=== PATIENT | female | born 1930 | race Hispanic/Latino ===

== ENCOUNTER 2017-06-10 00:31 | Inpatient (IN) | payer OTHER ==
[2017-06-10 01:07] VITALS: BMI 22.9
[2017-06-10] MEDS ORDERED: Sodium Chloride 0.9% 500 ML IV ONE (01:46)
[2017-06-10 02:00] LABS: BASO % 0.6 % (0.0-2.0); EOS # 0.1 K/uL (0.0-0.7); EOS % 1.5 % (0.0-4.0); LYMPH # 3.1 K/uL (1.0-4.3); LYMPH % 42.5 % (20.0-40.0); MEAN CELL VOLUME 84.2 fl (81.0-99.0); MEAN CORPUSCULAR HEMOGLOBIN 27.1 pg (27.0-31.0); MEAN CORPUSCULAR HGB CONC 32.2 g/dL (33.0-37.0); MEAN PLATELET VOLUME 8.1 fl (7.2-11.7); MONO # 0.8 K/uL (0.0-0.8); MONO % 10.5 % (0.0-10.0); NEUT # 3.3 K/uL (1.8-7.0); NEUT % 44.9 % (50.0-75.0); RBC 4.79 Mil/uL (3.80-5.20); RED CELL DISTRIBUTION WIDTH 16.2 % (11.5-14.5); WHITE BLOOD COUNT 7.3 K/uL (4.8-10.8)
--- NOTE | 2017-06-10 02:58 | ED PDOC ---
HPI: Chest Pain Time Seen by Provider: 06/10/17 01:04 Chief Complaint (Nursing): Chest Pain Chief Complaint (Provider): Chest pain and palpitations History Per: Patient History/Exam Limitations: no limitations Onset/Duration Of Symptoms: Hrs Current Symptoms Are (Timing): Still Present Severity: Moderate Quality: "Pain" Additional Complaint(s): 87 y/o female who complains of chest pain that began 20 minutes [employer] that is left sided and associated with left arm and jaw pain, as well as palpitations. Pain presented after eating and then stood to get to the car. Pain presented suddenly. She also complains of dizziness but denies numbness, weakness, syncope , or other complaint. Denies ever having this pain in the past but has mild pain when exerting that resolved. Past Medical History Vital Signs: Last Vital Signs Temp 97.8 F 06/10/17 20:04 Pulse 58 L 06/10/17 20:04 Resp 18 06/10/17 20:04 BP 133/70 06/10/17 20:04 Pulse Ox 98 06/10/17 20:04 - Medical History PMH: CAD, HTN, Hypercholesterolemia, Hyperlipidemia - Surgical History Surgical History: Cholecystectomy - Family History Family History: States: Unknown Family Hx - Social History Current smoker - smoking cessation education provided: No Alcohol: None Drugs: Denies - Home Medications Home Medications: Ambulatory Orders Medication Instructions Recorded Aspirin [Adult Low Dose Aspirin EC] 81 mg PO DAILY 06/10/17 Levothyroxine [Synthroid] 1 tab PO DAILY 06/10/17 Metformin HCl [Glucophage] 1,000 mg PO BID 06/10/17 Metoprolol Tartrate [Lopressor] 50 mg PO BID 06/10/17 - Allergies Allergies/Adverse Reactions: Allergies Allergy/AdvReac Type Severity Reaction Status Date / Time Sulfa (Sulfonamide Allergy RASH Verified 06/10/17 01:07 Antibiotics) JAZIEL Risk Score for UA/NSTEMI - JAZIEL Risk Score Age > 64: YES 3 or more CAD Risk Factors: YES Known CAD (Stenosis greater than 50%): NO Aspirin use in past 7 days: YES Severe Angina: NO EKG ST changes greater than 0.5mm: NO Positive Cardiac Marker: NO JAZIEL Score: 3 Risk %: 13% Wells Criteria for PE - Wells Criteria for Pulmonary Embolism Clinical Signs and Symptoms of DVT: No P.E is #1 Diagnosis, or Equally Likely: No Heart Rate >100: No Immobilization at least 3 days;Surgery previous 4 weeks: No Previous, objectively diagnosed PE or DVT: No Hemoptysis: No Malignancy w/treatment within 6 months, or palliative: No Total Score: 0 Review of Systems ROS Statement: Except As Marked, All Systems Reviewed And Found Negative Cardiovascular: Positive for: Chest Pain, Palpitations Musculoskeletal: Positive for: Shoulder Pain Neurological: Positive for: Dizziness Physical Exam - Reviewed Nursing Documentation Reviewed: Yes Vital Signs Reviewed: Yes - Physical Exam Appears: Positive for: Non-toxic, No Acute Distress Head Exam: Positive for: ATRAUMATIC, NORMAL INSPECTION, NORMOCEPHALIC Skin: Positive for: Normal Color, Warm, Dry Eye Exam: Positive for: EOMI, Normal appearance, PERRL ENT: Positive for: Normal ENT Inspection Neck: Positive for: Normal, Painless ROM Cardiovascular/Chest: Positive for: Tachycardia, Irregularly Irregular. Negative for: Regular Rate, Rhythm (irregularly irregular) Respiratory: Positive for: Normal Breath Sounds. Negative for: Accessory Muscle Use, Wheezing, Respiratory Distress Gastrointestinal/Abdominal: Positive for: Normal Exam, Soft. Negative for: Tenderness Back: Positive for: Normal Inspection Extremity: Positive for: Normal ROM Neurologic/Psych: Positive for: Alert, Oriented - Laboratory Results Result Diagrams: 06/10/17 01:57 06/10/17 01:57 - ECG ECG: Positive for: Interpreted By Me ECG Rhythm: Positive for: Normal QRS, Atrial Fibrillation (with RVR, rate 144), Nonspecific Changes. Negative for: Normal ST Segment O2 Sat by Pulse Oximetry: 96 (RA) Pulse Ox Interpretation: Normal - Critical Care Total Time (In Min): 60 Medical Decision Making Medical Decision Makin-30 Impression: Chest pain with Palpitations DDx: ACS, arrhythmia Plan: - EKG - Labs - CXR - IVF -ASA cardizem IV -lovenox SC hold on nitro due to borderline SBP and concurrent cardizem infusion EKG reviewed and shows new onset Afib with RVR. According to ACLS guidelines for SVT patient will be given Cardizem loading dose and infusion. 0130 Repeat EKG, after Cardizem, is improved and shows rate controlled afib. No ST changes, normal QRS, rate 77. Patient reports that her chest pain is resolved and is feeling better. Labs pending. Patient will be admitted to telemetry for afib and chest pain. EKG no ischemic changes. Chest pain resolved. tropx1 negative. Afib RVR management include cardizem for rate control and lovenox Chest pain/ACS: aspirin, lovenox, and cardiology consult. 06:32: Informed Dr. Lam of the patient's admission. Scribe Attestation Documented by Sweetie Gamboa acting as a scribe for Lia Collins MD. Scribe Attestation All medical record entries made by the Scribe were at my direction and personally dictated by me. I have reviewed the chart and agree that the record accurately reflects my personal performance of the history, physical exam, medical decision making, and the department course for this patient. I have also personally directed, reviewed, and agree with the discharge instructions and disposition. Disposition - Clinical Impression Clinical Impression: Atrial fibrillation with RVR, Acute chest pain, ACS (acute coronary syndrome) - Patient ED Disposition Is Patient to be Admitted: Yes Discussed With : Ervin Lam Doctor Will See Patient In The: Hospital Counseled Patient/Family Regarding: Studies Performed, Diagnosis - Disposition Disposition Time: 03:00 Condition: FAIR - Pt Status Changed To: Hospital Disposition Of: Inpatient - Admit Certification Admit to Inpatient:: After my assessment, the patient will require hospitalization for at least two midnights. This is because of the severity of symptoms shown, intensity of services needed, and/or the medical risk in this patient being treated as an outpatient. - POA Present On Arrival: None Core Measure Indicators: Chest Pain
[2017-06-10 03:07] LABS: INR 1.1 (0.9-1.2); PROTHROMBIN TIME 11.9 Seconds (9.8-13.1)
[2017-06-10 03:08] LABS: PARTIAL THROMBOPLASTIN TIME 30.7 Seconds (25.6-37.1)
[2017-06-10 03:13] LABS: BLOOD UREA NITROGEN 22 mg/dl (7-17); CALCIUM 9.8 mg/dL (8.4-10.2); GFR AFRICAN-AMERICAN > 60; GFR NON-AFRICAN AMERICAN > 60
[2017-06-10 03:22] LABS: B-TYPE NATRIURETIC PEPTIDE 222 pg/ml (0-900)
[2017-06-10] MEDS ORDERED: Enoxaparin 60 mg Syringe SC STA (04:13)
--- NOTE | 2017-06-10 09:06 | RAD ---
HISTORY: chest pain COMPARISON: No prior. FINDINGS: LUNGS: No active pulmonary disease. PLEURA: No significant pleural effusion identified, no pneumothorax apparent. CARDIOVASCULAR: Atherosclerotic aortic calcifications. Cardiomediastinal silhouette enlarged. OSSEOUS STRUCTURES: Degenerative changes. VISUALIZED UPPER ABDOMEN: Normal. OTHER FINDINGS: None. IMPRESSION: No active disease.
--- NOTE | 2017-06-10 12:17 | CP.PCM.HP ---
Past Patient History - Past Social History Smoking Status: Never Smoked - CARDIAC Hx Cardiac Disorders: Yes Hx Hypercholesterolemia: Yes Hx Hypertension: Yes - PULMONARY Hx Respiratory Disorders: No - NEUROLOGICAL Hx Neurological Disorder: No - ENDOCRINE/METABOLIC Hx Endocrine Disorders: Yes Hx Diabetes Mellitus Type 2: Yes Hx Hypothyroidism: Yes - HEMATOLOGICAL/ONCOLOGICAL Hx Blood Disorders: No - MUSCULOSKELETAL/RHEUMATOLOGICAL Hx Musculoskeletal Disorders: No Hx Falls: No - GASTROINTESTINAL Hx Gastrointestinal Disorders: No - PSYCHIATRIC Hx Psychophysiologic Disorder: No Hx Substance Use: No - SURGICAL HISTORY Hx Surgeries: Yes Hx Cholecystectomy: Yes - ANESTHESIA Hx Anesthesia: Yes Hx Anesthesia Reactions: No Hx Malignant Hyperthermia: No Meds Allergies/Adverse Reactions: Allergies Allergy/AdvReac Type Severity Reaction Status Date / Time Sulfa (Sulfonamide Allergy RASH Verified 06/10/17 01:07 Antibiotics) Results - Vital Signs Recent Vital Signs: Last Vital Signs Temp 97.2 F L 06/10/17 08:30 Pulse 115 H 06/10/17 09:00 Resp 22 06/10/17 09:00 BP 96/64 L 06/10/17 08:30 Pulse Ox 98 06/10/17 08:30 - Labs Result Diagrams: 06/10/17 01:57 06/10/17 01:57 Labs: Laboratory Results - last 24 hr 06/10/17 06/10/17 06/10/17 01:38 01:57 01:57 WBC 7.3 RBC 4.79 Hgb 13.0 Hct 40.3 MCV 84.2 MCH 27.1 MCHC 32.2 L RDW 16.2 H Plt Count 223 MPV 8.1 Neut % (Auto) 44.9 L Lymph % (Auto) 42.5 H [place] % (Auto) 10.5 H Eos % (Auto) 1.5 Baso % (Auto) 0.6 Neut # (Auto) 3.3 Lymph # (Auto) 3.1 [place] # (Auto) 0.8 Eos # (Auto) 0.1 Baso # (Auto) 0.0 PT INR APTT Sodium 142 Potassium 4.2 Chloride 103 Carbon Dioxide 23 Anion Gap 20 BUN 22 H Creatinine 0.7 Est GFR ( Amer) > 60 Est GFR (Non-Af Amer) > 60 POC Glucose (mg/dL) 167 H Random Glucose 139 H Calcium 9.8 Troponin I < 0.0120 NT-Pro-B Natriuret Pep 222 TSH 3rd Generation 0.97 06/10/17 01:57 WBC RBC Hgb Hct MCV MCH MCHC RDW Plt Count MPV Neut % (Auto) Lymph % (Auto) [place] % (Auto) Eos % (Auto) Baso % (Auto) Neut # (Auto) Lymph # (Auto) [place] # (Auto) Eos # (Auto) Baso # (Auto) PT 11.9 INR 1.1 APTT 30.7 Sodium Potassium Chloride Carbon Dioxide Anion Gap BUN Creatinine Est GFR ( Amer) Est GFR (Non-Af Amer) POC Glucose (mg/dL) Random Glucose Calcium Troponin I NT-Pro-B Natriuret Pep TSH 3rd Generation
--- NOTE | 2017-06-10 14:06 | CP.PCM.CON ---
History of Present Illness - History of Present Illness History of Present Illness: Consultation for evaluation of NSTEMI/ CP HPI: 87-year-old female with past medical history significant for hypertension diabetes mellitus who is visiting her grandson in [place] from [place] started complaining of substernal chest pain pressure-like 8 out of 10 in intensity radiating to the neck and left arm which would not really for which she came to the emergency room she has been ruled in for acute myocardial infarction with the second set of troponin 0 0.38 currently denies having any chest pains says that prior to visiting her grandson she would get exertional substernal chest pain associated with mild shortness of breath lives independently very active at baseline. Review of Systems - Review of Systems Systems not reviewed;Unavailable: Acuity of Condition - Constitutional Constitutional: As Per HPI - EENT Eyes: As Per HPI Ears: As Per HPI Nose/Mouth/Throat: As Per HPI - Breasts Breasts: As Per HPI - Cardiovascular Cardiovascular: As Per HPI - Respiratory Respiratory: As Per HPI - Gastrointestinal Gastrointestinal: As Per HPI - Genitourinary Genitourinary: As Per HPI - Reproductive: Female Reproductive:Female: As Per HPI - Menstruation Menstruation: As Per HPI - Musculoskeletal Musculoskeletal: As Per HPI - Integumentary Integumentary: As Per HPI - Neurological Neurological: As Per HPI - Psychiatric Psychiatric: As Per HPI - Endocrine Endocrine: As Per HPI - Hematologic/Lymphatic Hematologic: As Per HPI Past Patient History - Past Social History Smoking Status: Never Smoked - CARDIAC Hx Cardiac Disorders: Yes Hx Hypercholesterolemia: Yes Hx Hypertension: Yes - PULMONARY Hx Respiratory Disorders: No - NEUROLOGICAL Hx Neurological Disorder: No - ENDOCRINE/METABOLIC Hx Endocrine Disorders: Yes Hx Diabetes Mellitus Type 2: Yes Hx Hypothyroidism: Yes - HEMATOLOGICAL/ONCOLOGICAL Hx Blood Disorders: No - MUSCULOSKELETAL/RHEUMATOLOGICAL Hx Musculoskeletal Disorders: No Hx Falls: No - GASTROINTESTINAL Hx Gastrointestinal Disorders: No - PSYCHIATRIC Hx Psychophysiologic Disorder: No Hx Substance Use: No - SURGICAL HISTORY Hx Surgeries: Yes Hx Cholecystectomy: Yes - ANESTHESIA Hx Anesthesia: Yes Hx Anesthesia Reactions: No Hx Malignant Hyperthermia: No Meds Allergies/Adverse Reactions: Allergies Allergy/AdvReac Type Severity Reaction Status Date / Time Sulfa (Sulfonamide Allergy RASH Verified 06/10/17 01:07 Antibiotics) - Medications Medications: Current Medications Aspirin (Ecotrin) 81 mg PO DAILY [facility] Enoxaparin Sodium (Lovenox) 60 mg SC Q12 [facility] PRN Reason: Protocol Diltiazem HCl 100 mg/ Sodium (Chloride) 100 mls @ 5 mls/hr IV .Q20H ONE; 5 MG/ HR PRN Reason: Protocol Stop: 06/11/17 01:29 Last Admin: 06/10/17 05:35 Dose: 5 mls/hr Insulin Human Lispro (Humalog) 0 units SC ACHS [facility] PRN Reason: Protocol Levothyroxine Sodium (Synthroid) 75 mcg PO DAILY [facility] Metformin HCl (Glucophage) 1,000 mg PO BID [facility] Metoprolol Tartrate (Lopressor) 50 mg PO BID [facility] Physical Exam - Constitutional Appears: Well - Head Exam Head Exam: ATRAUMATIC, NORMAL INSPECTION, NORMOCEPHALIC - Eye Exam Eye Exam: EOMI, Normal appearance, PERRL Pupil Exam: NORMAL ACCOMODATION, PERRL - ENT Exam ENT Exam: Mucous Membranes Moist, Normal Exam - Neck Exam Neck exam: Positive for: Normal Inspection - Respiratory Exam Respiratory Exam: Clear to Auscultation Bilateral, NORMAL BREATHING PATTERN - Cardiovascular Exam Cardiovascular Exam: Bradycardia, Irregular Rhythm, RRR, Systolic Murmur - GI/Abdominal Exam GI & Abdominal Exam: Normal Bowel Sounds, Soft. absent: Tenderness - Extremities Exam Extremities exam: Positive for: normal inspection - Back Exam Back exam: NORMAL INSPECTION - Neurological Exam Neurological exam: Alert, CN II-XII Intact, Normal Gait, Oriented x3, Reflexes Normal - Psychiatric Exam Psychiatric exam: Normal Affect, Normal Mood - Skin Skin Exam: Dry, Intact, Normal Color, Warm Results - Vital Signs Recent Vital Signs: Last Vital Signs Temp 97.5 F L 06/10/17 12:21 Pulse 70 06/10/17 12:21 Resp 18 06/10/17 12:21 BP 114/75 06/10/17 12:21 Pulse Ox 98 06/10/17 12:21 - Labs Result Diagrams: 06/10/17 01:57 06/10/17 01:57 Labs: Laboratory Results - last 24 hr 06/10/17 06/10/17 06/10/17 01:38 01:57 01:57 WBC 7.3 RBC 4.79 Hgb 13.0 Hct 40.3 MCV 84.2 MCH 27.1 MCHC 32.2 L RDW 16.2 H Plt Count 223 MPV 8.1 Neut % (Auto) 44.9 L Lymph % (Auto) 42.5 H [place] % (Auto) 10.5 H Eos % (Auto) 1.5 Baso % (Auto) 0.6 Neut # (Auto) 3.3 Lymph # (Auto) 3.1 [place] # (Auto) 0.8 Eos # (Auto) 0.1 Baso # (Auto) 0.0 PT INR APTT Sodium 142 Potassium 4.2 Chloride 103 Carbon Dioxide 23 Anion Gap 20 BUN 22 H Creatinine 0.7 Est GFR ( Amer) > 60 Est GFR (Non-Af Amer) > 60 POC Glucose (mg/dL) 167 H Random Glucose 139 H Calcium 9.8 Troponin I < 0.0120 NT-Pro-B Natriuret Pep 222 TSH 3rd Generation 0.97 06/10/17 06/10/17 01:57 12:27 WBC RBC Hgb Hct MCV MCH MCHC RDW Plt Count MPV Neut % (Auto) Lymph % (Auto) [place] % (Auto) Eos % (Auto) Baso % (Auto) Neut # (Auto) Lymph # (Auto) [place] # (Auto) Eos # (Auto) Baso # (Auto) PT 11.9 INR 1.1 APTT 30.7 Sodium Potassium Chloride Carbon Dioxide Anion Gap BUN Creatinine Est GFR ( Amer) Est GFR (Non-Af Amer) POC Glucose (mg/dL) Random Glucose Calcium Troponin I 0.3770 H* NT-Pro-B Natriuret Pep TSH 3rd Generation Assessment & Plan (1) NSTEMI (non-ST elevated myocardial infarction) Assessment and Plan: keep pt on therapeutic AC with IV heparin per ACS protocol asa, statins, bb plan for cardiac cath in am at [facility] [place] NPO p [place] Status: Acute (2) Chest pain Status: Acute (3) HTN (hypertension) Status: Acute (4) Afib Assessment and Plan: IV heparin BB echo statins CCB Status: Acute
--- NOTE | 2017-06-10 15:14 | CARD ---
APPROVED REPORT EKG Measurement Heart [id number] <Conclusion> Atrial fibrillation with premature ventricular or aberrantly conducted complexes Nonspecific ST abnormality Abnormal ECG
--- NOTE | 2017-06-10 15:17 | CARD ---
APPROVED REPORT EKG Measurement Heart [id number] <Conclusion> Atrial fibrillation with rapid ventricular response Marked ST abnormality, possible inferior subendocardial injury Abnormal ECG
[2017-06-10] MEDS: Insulin Lispro (humaLOG) 100 Units/ml Inj SC SCH ×2 (16:16→21:48)
[2017-06-10] MEDS: Enoxaparin 60 mg Syringe SC SCH (21:30)
[2017-06-11 05:44] LABS: BASO % 0.5 % (0.0-2.0); EOS # 0.1 K/uL (0.0-0.7); EOS % 2.4 % (0.0-4.0); LYMPH # 2.8 K/uL (1.0-4.3); LYMPH % 47.9 % (20.0-40.0); MEAN CELL VOLUME 83.6 fl (81.0-99.0); MEAN CORPUSCULAR HEMOGLOBIN 27.5 pg (27.0-31.0); MEAN CORPUSCULAR HGB CONC 32.9 g/dL (33.0-37.0); MEAN PLATELET VOLUME 7.7 fl (7.2-11.7); MONO # 0.5 K/uL (0.0-0.8); NEUT # 2.4 K/uL (1.8-7.0); NEUT % 40.2 % (50.0-75.0); NRBC % 0.1 % (0.0-0.0); RBC 4.37 Mil/uL (3.80-5.20); RED CELL DISTRIBUTION WIDTH 15.9 % (11.5-14.5); WHITE BLOOD COUNT 5.9 K/uL (4.8-10.8)
[2017-06-11 05:50] LABS: BLOOD UREA NITROGEN 17 mg/dl (7-17); CALCIUM 8.8 mg/dL (8.4-10.2); GFR AFRICAN-AMERICAN > 60; GFR NON-AFRICAN AMERICAN > 60
[2017-06-11] MEDS: Insulin Lispro (humaLOG) 100 Units/ml Inj SC SCH ×3 (06:34→16:30)
[2017-06-11] MEDS: Enoxaparin 60 mg Syringe SC SCH (08:45)
[2017-06-11] MEDS: Levothyroxine 75 MCG TAB PO SCH (08:48)
--- NOTE | 2017-06-11 10:43 | CP.PCM.PN ---
Subjective - Date & Time of Evaluation Date of Evaluation: 06/11/17 Time of Evaluation: 10:43 - Subjective Subjective: [place] [facility] [place] - Vital Signs/Intake and Output Vital Signs (last 24 hours): Temp Pulse Resp BP Pulse Ox 97.7 F 60 20 161/87 H 96 06/11/17 09:00 06/11/17 09:00 06/11/17 09:00 06/11/17 09:00 06/11/17 09:00 - Medications Medications: Current Medications Aspirin (Ecotrin) 81 mg PO DAILY [facility] Last Admin: 06/11/17 08:45 Dose: 81 mg Enoxaparin Sodium (Lovenox) 60 mg SC Q12 [facility] PRN Reason: Protocol Last Admin: 06/11/17 08:45 Dose: Not Given Insulin Human Lispro (Humalog) 0 units SC ACHS [facility] PRN Reason: Protocol Last Admin: 06/11/17 06:34 Dose: Not Given Levothyroxine Sodium (Synthroid) 75 mcg PO DAILY [facility] Last Admin: 06/11/17 08:48 Dose: Not Given Metformin HCl (Glucophage) 1,000 mg PO BID [facility] Last Admin: 06/11/17 08:45 Dose: Not Given Metoprolol Tartrate (Lopressor) 50 mg PO BID [facility] Last Admin: 06/11/17 08:47 Dose: Not Given - Labs Labs: 06/11/17 04:10 06/11/17 04:10 PT 11.9 Seconds (9.8-13.1) 06/10/17 01:57 INR 1.1 (0.9-1.2) 06/10/17 01:57 APTT 30.7 Seconds (25.6-37.1) 06/10/17 01:57 - Constitutional Appears: Well - Head Exam Head Exam: ATRAUMATIC, NORMAL INSPECTION, NORMOCEPHALIC - Eye Exam Eye Exam: EOMI, Normal appearance, PERRL Pupil Exam: NORMAL ACCOMODATION, PERRL - ENT Exam ENT Exam: Mucous Membranes Moist, Normal Exam - Neck Exam Neck Exam: Full ROM, Normal Inspection. absent: Lymphadenopathy - Respiratory Exam Respiratory Exam: Clear to Ausculation Bilateral, NORMAL BREATHING PATTERN - Cardiovascular Exam Cardiovascular Exam: REGULAR RHYTHM, +S1, +S2. absent: Murmur - GI/Abdominal Exam GI & Abdominal Exam: Soft, Normal Bowel Sounds. absent: Tenderness - Extremities Exam Extremities Exam: Full ROM, Normal Capillary Refill, Normal Inspection. absent : Joint Swelling, Pedal Edema - Back Exam Back Exam: NORMAL INSPECTION - Neurological Exam Neurological Exam: Alert, Awake, CN II-XII Intact, Normal Gait, Oriented x3 - Psychiatric Exam Psychiatric exam: Normal Affect, Normal Mood - Skin Skin Exam: Dry, Intact, Normal Color, Warm Assessment and Plan (1) NSTEMI (non-ST elevated myocardial infarction) Status: Acute (2) Chest pain Status: Acute (3) HTN (hypertension) Status: Acute (4) Afib Status: Acute
--- NOTE | 2017-06-11 22:48 | CP.PCM.PN ---
Subjective - Date & Time of Evaluation Date of Evaluation: 06/11/17 Time of Evaluation: 16:45 Objective - Vital Signs/Intake and Output Vital Signs (last 24 hours): Temp Pulse Resp BP Pulse Ox 97.7 F 60 20 161/87 H 96 06/11/17 09:00 06/11/17 09:00 06/11/17 09:00 06/11/17 09:00 06/11/17 09:00 - Medications Medications: Current Medications Aspirin (Ecotrin) 81 mg PO DAILY [facility] Last Admin: 06/11/17 08:45 Dose: 81 mg Enoxaparin Sodium (Lovenox) 60 mg SC Q12 [facility] PRN Reason: Protocol Last Admin: 06/11/17 08:45 Dose: Not Given Insulin Human Lispro (Humalog) 0 units SC ACHS [facility] PRN Reason: Protocol Last Admin: 06/11/17 16:30 Dose: Not Given Levothyroxine Sodium (Synthroid) 75 mcg PO DAILY [facility] Last Admin: 06/11/17 08:48 Dose: Not Given Metformin HCl (Glucophage) 1,000 mg PO BID [facility] Last Admin: 06/11/17 19:28 Dose: Not Given Metoprolol Tartrate (Lopressor) 50 mg PO BID [facility] Last Admin: 06/11/17 17:00 Dose: Not Given - Labs Labs: 06/11/17 04:10 06/11/17 04:10 PT 11.9 Seconds (9.8-13.1) 06/10/17 01:57 INR 1.1 (0.9-1.2) 06/10/17 01:57 APTT 30.7 Seconds (25.6-37.1) 06/10/17 01:57
[2017-06-12] MEDS: Insulin Lispro (humaLOG) 100 Units/ml Inj SC SCH ×5 (00:06→22:42)
[2017-06-12] MEDS: Enoxaparin 60 mg Syringe SC SCH ×2 (00:07→09:15)
--- NOTE | 2017-06-12 09:11 | IP.NPCORE ---
Acute NE Core Measure PNote - Source Source: Echo - Medications Beta Todd prescribed: Name/dose/frequency: metoprolol 50 mg po bid
[2017-06-12] MEDS: Levothyroxine 75 MCG TAB PO SCH (09:14)
--- NOTE | 2017-06-12 16:09 | CP.PCM.PN ---
Subjective - Date & Time of Evaluation Date of Evaluation: 06/12/17 Time of Evaluation: 16:07 - Subjective Subjective: right hand hematoma noted discomfort at wrist site echo today Objective - Vital Signs/Intake and Output Vital Signs (last 24 hours): Temp Pulse Resp BP Pulse Ox 97.1 F L 68 20 115/75 98 06/12/17 13:33 06/12/17 13:50 06/12/17 13:33 06/12/17 13:50 06/12/17 13:33 - Medications Medications: Current Medications Aspirin (Ecotrin) 81 mg PO DAILY [facility] Last Admin: 06/12/17 09:14 Dose: 81 mg Atorvastatin Calcium (Lipitor) 20 mg PO DAILY [facility] Last Admin: 06/12/17 09:53 Dose: 20 mg Enoxaparin Sodium (Lovenox) 60 mg SC Q12 [facility] PRN Reason: Protocol Last Admin: 06/12/17 09:15 Dose: 60 mg Insulin Human Lispro (Humalog) 0 units SC ACHS [facility] PRN Reason: Protocol Last Admin: 06/12/17 11:30 Dose: Not Given Levothyroxine Sodium (Synthroid) 75 mcg PO DAILY [facility] Last Admin: 06/12/17 09:14 Dose: 75 mcg Lisinopril (Zestril) 2.5 mg PO DAILY [facility] Last Admin: 06/12/17 13:50 Dose: 2.5 mg Metformin HCl (Glucophage) 1,000 mg PO BID [facility] Last Admin: 06/12/17 09:14 Dose: Not Given Metoprolol Tartrate (Lopressor) 50 mg PO BID [facility] Last Admin: 06/12/17 09:54 Dose: 50 mg - Labs Labs: 06/11/17 04:10 06/11/17 04:10 PT 11.9 Seconds (9.8-13.1) 06/10/17 01:57 INR 1.1 (0.9-1.2) 06/10/17 01:57 APTT 30.7 Seconds (25.6-37.1) 06/10/17 01:57 - Constitutional Appears: Well - Head Exam Head Exam: ATRAUMATIC, NORMAL INSPECTION, NORMOCEPHALIC - Eye Exam Eye Exam: EOMI, Normal appearance, PERRL Pupil Exam: NORMAL ACCOMODATION, PERRL - ENT Exam ENT Exam: Mucous Membranes Moist, Normal Exam - Neck Exam Neck Exam: Full ROM, Normal Inspection. absent: Lymphadenopathy - Respiratory Exam Respiratory Exam: Clear to Ausculation Bilateral, NORMAL BREATHING PATTERN - Cardiovascular Exam Cardiovascular Exam: REGULAR RHYTHM, +S1, +S2, Murmur - GI/Abdominal Exam GI & Abdominal Exam: Soft, Normal Bowel Sounds. absent: Tenderness - Extremities Exam Extremities Exam: Full ROM, Normal Capillary Refill, Normal Inspection. absent : Joint Swelling, Pedal Edema - Back Exam Back Exam: NORMAL INSPECTION - Neurological Exam Neurological Exam: Alert, Awake, CN II-XII Intact, Normal Gait, Oriented x3 - Psychiatric Exam Psychiatric exam: Normal Affect, Normal Mood - Skin Skin Exam: Dry, Intact, Normal Color, Warm Assessment and Plan (1) NSTEMI (non-ST elevated myocardial infarction) Assessment & Plan: non-obstructive CAD ectatic RCA Status: Acute (2) Chest pain Assessment & Plan: resolved Status: Acute (3) HTN (hypertension) Assessment & Plan: cont metoprolol and lisinopril Status: Acute (4) Afib Assessment & Plan: initiate on xarelto in am cont PT Status: Acute
--- NOTE | 2017-06-12 16:16 | US ---
PROCEDURE: Left Upper Extremity Venous Doppler HISTORY: r/o dvt, hematoma COMPARISON: None available. TECHNIQUE: Left upper extremity deep veins, including the lower internal jugular, subclavian, axillary and brachial veins, were evaluated flow, compressibility and respiratory phasicity. The cephalic, basilic, radial and ulnar veins were also evaluated. FINDINGS: Normal flow, compressibility and respiratory phasicity was observed in the the left upper extremity deep veins. Nonspecific 2.4 x 1.3 x 1.4 cm cystic structure without peripheral or internal flow in the antecubital fossa. IMPRESSION: No evidence of deep venous thrombosis. Nonspecific 2.4 cm cystic structure in the antecubital fossa.
[2017-06-12] MEDS ORDERED: Insulin Lispro (humaLOG) 100 Units/ml Inj SC SCH (16:30)
--- NOTE | 2017-06-12 22:45 | CP.PCM.PN ---
Subjective - Date & Time of Evaluation Date of Evaluation: 06/12/17 Time of Evaluation: 16:30 Objective - Vital Signs/Intake and Output Vital Signs (last 24 hours): Temp Pulse Resp BP Pulse Ox 97.6 F 76 17 105/71 98 06/12/17 19:52 06/12/17 20:35 06/12/17 19:52 06/12/17 19:52 06/12/17 19:52 - Medications Medications: Current Medications Aspirin (Ecotrin) 81 mg PO DAILY [facility] Last Admin: 06/12/17 09:14 Dose: 81 mg Atorvastatin Calcium (Lipitor) 20 mg PO DAILY [facility] Last Admin: 06/12/17 09:53 Dose: 20 mg Enoxaparin Sodium (Lovenox) 60 mg SC Q12 [facility] PRN Reason: Protocol Last Admin: 06/12/17 09:15 Dose: 60 mg Insulin Human Lispro (Humalog) 0 units SC ACHS [facility] PRN Reason: Protocol Last Admin: 06/12/17 22:42 Dose: Not Given Levothyroxine Sodium (Synthroid) 75 mcg PO DAILY@0630 [facility] Lisinopril (Zestril) 2.5 mg PO DAILY [facility] Last Admin: 06/12/17 13:50 Dose: 2.5 mg Metformin HCl (Glucophage) 1,000 mg PO BID [facility] Last Admin: 06/12/17 09:14 Dose: Not Given Metoprolol Tartrate (Lopressor) 50 mg PO BID [facility] Last Admin: 06/12/17 17:17 Dose: 50 mg - Labs Labs: 06/11/17 04:10 06/11/17 04:10 PT 11.9 Seconds (9.8-13.1) 06/10/17 01:57 INR 1.1 (0.9-1.2) 06/10/17 01:57 APTT 30.7 Seconds (25.6-37.1) 06/10/17 01:57
[2017-06-13 00:14] VITALS: O2SAT 97
[2017-06-13 05:28] LABS: HEMOGLOBIN 10.8 g/dL (12.0-16.0); MEAN CELL VOLUME 83.9 fl (81.0-99.0); MEAN CORPUSCULAR HEMOGLOBIN 27.6 pg (27.0-31.0); MEAN CORPUSCULAR HGB CONC 32.9 g/dL (33.0-37.0); RBC 3.91 Mil/uL (3.80-5.20); RED CELL DISTRIBUTION WIDTH 15.8 % (11.5-14.5); WHITE BLOOD COUNT 5.6 K/uL (4.8-10.8)
[2017-06-13 05:36] LABS: BLOOD UREA NITROGEN 21 mg/dl (7-17); CALCIUM 8.9 mg/dL (8.4-10.2); GFR AFRICAN-AMERICAN > 60; GFR NON-AFRICAN AMERICAN > 60
[2017-06-13] MEDS ORDERED: Levothyroxine 75 MCG TAB PO SCH (06:30)
[2017-06-13] MEDS: Insulin Lispro (humaLOG) 100 Units/ml Inj SC SCH ×3 (06:45→17:10)
--- NOTE | 2017-06-13 09:41 | CP.PCM.PN ---
Subjective - Date & Time of Evaluation Date of Evaluation: 06/13/17 Time of Evaluation: 09:39 - Subjective Subjective: feeling better s/p lhcx hematoma decreasing in left arm u/s -ve Objective - Vital Signs/Intake and Output Vital Signs (last 24 hours): Temp Pulse Resp BP Pulse Ox 97.4 F L 64 18 118/67 97 06/13/17 07:53 06/13/17 07:53 06/13/17 07:53 06/13/17 07:53 06/13/17 07:53 - Medications Medications: Current Medications Aspirin (Ecotrin) 81 mg PO DAILY [facility] Last Admin: 06/12/17 09:14 Dose: 81 mg Atorvastatin Calcium (Lipitor) 20 mg PO DAILY [facility] Last Admin: 06/12/17 09:53 Dose: 20 mg Enoxaparin Sodium (Lovenox) 60 mg SC Q12 [facility] PRN Reason: Protocol Last Admin: 06/12/17 09:15 Dose: 60 mg Insulin Human Lispro (Humalog) 0 units SC ACHS [facility] PRN Reason: Protocol Last Admin: 06/13/17 06:45 Dose: Not Given Levothyroxine Sodium (Synthroid) 75 mcg PO DAILY@0630 [facility] Last Admin: 06/13/17 07:00 Dose: 75 mcg Lisinopril (Zestril) 2.5 mg PO DAILY [facility] Last Admin: 06/12/17 13:50 Dose: 2.5 mg Metformin HCl (Glucophage) 1,000 mg PO BID [facility] Last Admin: 06/12/17 09:14 Dose: Not Given Metoprolol Tartrate (Lopressor) 50 mg PO BID [facility] Last Admin: 06/12/17 17:17 Dose: 50 mg Rivaroxaban (Xarelto) 15 mg PO DAILY [facility] PRN Reason: Protocol - Labs Labs: 06/13/17 04:20 PT 11.9 Seconds (9.8-13.1) 06/10/17 01:57 INR 1.1 (0.9-1.2) 06/10/17 01:57 APTT 30.7 Seconds (25.6-37.1) 06/10/17 01:57 - Constitutional Appears: Well - Head Exam Head Exam: ATRAUMATIC, NORMAL INSPECTION, NORMOCEPHALIC - Eye Exam Eye Exam: EOMI, Normal appearance, PERRL Pupil Exam: NORMAL ACCOMODATION, PERRL - ENT Exam ENT Exam: Mucous Membranes Moist, Normal Exam - Neck Exam Neck Exam: Full ROM, Normal Inspection. absent: Lymphadenopathy - Respiratory Exam Respiratory Exam: Clear to Ausculation Bilateral, NORMAL BREATHING PATTERN - Cardiovascular Exam Cardiovascular Exam: REGULAR RHYTHM, +S1, +S2, Murmur - GI/Abdominal Exam GI & Abdominal Exam: Soft, Normal Bowel Sounds. absent: Tenderness - Extremities Exam Extremities Exam: Full ROM, Normal Capillary Refill, Normal Inspection. absent : Joint Swelling, Pedal Edema - Back Exam Back Exam: NORMAL INSPECTION - Neurological Exam Neurological Exam: Alert, Awake, CN II-XII Intact, Normal Gait, Oriented x3 - Psychiatric Exam Psychiatric exam: Normal Affect, Normal Mood - Skin Skin Exam: Dry, Intact, Normal Color, Warm Assessment and Plan (1) NSTEMI (non-ST elevated myocardial infarction) Assessment & Plan: 2' to ectatic RCA with slow flow phenomenon initiate on xarelto cont bb and acei Status: Acute (2) Chest pain Status: Acute (3) HTN (hypertension) Status: Acute (4) Afib Assessment & Plan: xarelto bb acei statins Status: Acute
--- NOTE | 2017-06-13 11:48 | CARD ---
APPROVED REPORT EXAM: Two-dimensional and M-mode echocardiogram with Doppler and color Doppler. Other Information Quality : GoodRhythm : NSR INDICATION Atrial Fibrillation 2D DIMENSIONS IVSd1.09 (0.7-1.1cm)LVDd3.96 (3.9-5.9cm) LVOT Diameter1.90 (1.8-2.4cm)PWd0.99 (0.7-1.1cm) IVSs1.64 (0.8-1.2cm)LVDs2.44 (2.5-4.0cm) FS (%) 38.5 %PWs1.07 (0.8-1.2cm) M-Mode DIMENSIONS Left Atrium (MM)4.19 (2.5-4.0cm)IVSd1.41 (0.7-1.1cm) Aortic Root2.59 (2.2-3.7cm)LVDd3.67 (4.0-5.6cm) Aortic Cusp Exc.1.68 (1.5-2.0cm)PWd0.94 (0.7-1.1cm) IVSs1.74 cmFS (%) 44 % LVDs2.07 (2.0-3.8cm)PWs1.52 cm Mitral Valve MV E Nqxkhxqs99.3cm/sMV DECEL [id number] A Hrboqjey040.0cm/s MV OYQ232fyG/A ratio0.5MVA (PHT)2.09cm2 TDI Medial E' Peak V6.19cm/sE/Lateral E'0.0E/Medial E'8.6 Pulmonary Valve PV Peak Hgrrylpv26.8cm/s Tricuspid Valve TR Peak Lkocyvra042sz/sRAP TNLGUROZ35rzCaEZ Peak Gr.19mmHg QDMN24zzEc LEFT VENTRICLE The left ventricle is normal size. There is normal left ventricular wall thickness. The left ventricular function is normal. The left ventricular ejection fraction is 60% There is normal LV segmental wall motion. Transmitral Doppler flow pattern is Grade I-abnormal relaxation pattern. No left ventricle thrombus noted on this study. There is no ventricular septal defect visualized. There is no left ventricular aneurysm. There is no mass noted in the left ventricle. RIGHT VENTRICLE The right ventricle is normal size. There is normal right ventricular wall thickness. The right ventricular systolic function is normal. ATRIA The left atrium size is normal. The right atrium size is normal. The interatrial septum is intact with no evidence for an atrial septal defect. AORTIC VALVE The aortic valve is normal in structure. No aortic regurgitation is present. There is no aortic valvular stenosis. There is no aortic valvular vegetation. MITRAL VALVE Mitral annular calcification is moderate to severe. There is no evidence of mitral valve prolapse. There is no mitral valve stenosis. There is no mitral valve regurgitation noted. TRICUSPID VALVE The tricuspid valve is normal in structure. There is no tricuspid valve regurgitation noted. There is no tricuspid valve prolapse or vegetation. There is no tricuspid valve stenosis. PULMONIC VALVE The pulmonary valve is normal in structure. There is no pulmonic valvular regurgitation. There is no pulmonic valvular stenosis. GREAT VESSELS The aortic root is normal in size. The ascending aorta is normal in size. The IVC is normal in size and collapses >50% with inspiration. PERICARDIAL EFFUSION The pericardium appears normal. There is no pleural effusion. <Conclusion> Normal LV Systolic Function Mitral Annular Calcification
[2017-06-13 12:13] VITALS: PULSE 63
[2017-06-13 15:37] VITALS: BP 107/61; RESP 18; TEMP 97.8
--- NOTE | 2017-06-14 13:05 | CP.PCM.DIS ---
Provider - Provider Date of Admission: 06/10/17 04:13 Attending physician: Ervin Lam MD Time Spent in preparation of Discharge (in minutes): 30 Hospital Course - Lab Results Lab Results: Most Recent Lab Values WBC 5.6 K/uL (4.8-10.8) 06/13/17 04:20 RBC 3.91 Mil/uL (3.80-5.20) 06/13/17 04:20 Hgb 10.8 g/dL (12.0-16.0) L 06/13/17 04:20 Hct 32.8 % (34.0-47.0) L 06/13/17 04:20 MCV 83.9 fl (81.0-99.0) 06/13/17 04:20 MCH 27.6 pg (27.0-31.0) 06/13/17 04:20 MCHC 32.9 g/dL (33.0-37.0) L 06/13/17 04:20 RDW 15.8 % (11.5-14.5) H 06/13/17 04:20 Plt Count 174 K/uL (130-400) 06/13/17 04:20 MPV 7.7 fl (7.2-11.7) 06/11/17 04:10 Neut % (Auto) 40.2 % (50.0-75.0) L 06/11/17 04:10 Lymph % (Auto) 47.9 % (20.0-40.0) H 06/11/17 04:10 [place] % (Auto) 9.0 % (0.0-10.0) 06/11/17 04:10 Eos % (Auto) 2.4 % (0.0-4.0) 06/11/17 04:10 Baso % (Auto) 0.5 % (0.0-2.0) 06/11/17 04:10 Neut # (Auto) 2.4 K/uL (1.8-7.0) 06/11/17 04:10 Lymph # (Auto) 2.8 K/uL (1.0-4.3) 06/11/17 04:10 [place] # (Auto) 0.5 K/uL (0.0-0.8) 06/11/17 04:10 Eos # (Auto) 0.1 K/uL (0.0-0.7) 06/11/17 04:10 Baso # (Auto) 0.0 K/uL (0.0-0.2) 06/11/17 04:10 PT 11.9 Seconds (9.8-13.1) 06/10/17 01:57 INR 1.1 (0.9-1.2) 06/10/17 01:57 APTT 30.7 Seconds (25.6-37.1) 06/10/17 01:57 Sodium 140 mmol/l (132-148) 06/13/17 04:20 Potassium 4.0 MMOL/L (3.6-5.0) 06/13/17 04:20 Chloride 102 mmol/L (98-107) 06/13/17 04:20 Carbon Dioxide 27 mmol/L (22-30) 06/13/17 04:20 Anion Gap 15 (10-20) 06/13/17 04:20 BUN 21 mg/dl (7-17) H 06/13/17 04:20 Creatinine 0.7 mg/dl (0.7-1.2) 06/13/17 04:20 Est GFR ( Amer) > 60 06/13/17 04:20 Est GFR (Non-Af Amer) > 60 06/13/17 04:20 POC Glucose (mg/dL) 122 mg/dL (65-110) H 06/13/17 15:47 Random Glucose 120 mg/dL (65-105) H 06/13/17 04:20 Hemoglobin A1c 6.5 % (4.2-6.5) 06/11/17 04:10 Calcium 8.9 mg/dL (8.4-10.2) 06/13/17 04:20 Magnesium 1.7 MG/DL (1.6-2.3) 06/11/17 04:10 Troponin I 0.2740 ng/mL (0.00-0.120) H* 06/11/17 04:10 NT-Pro-B Natriuret Pep 222 pg/ml (0-900) 06/10/17 01:57 TSH 3rd Generation 0.97 mIU/ML (0.46-4.68) 06/10/17 01:57 Discharge Exam - Head Exam Head Exam: ATRAUMATIC, NORMAL INSPECTION, NORMOCEPHALIC Discharge Plan - Discharge Medications Prescriptions: Atorvastatin [Lipitor] 20 mg PO DAILY #30 tab Rivaroxaban [Xarelto] 15 mg PO DAILY #30 tab Lisinopril [Zestril] 2.5 mg PO DAILY #30 tab - Follow Up Plan Condition: FAIR Disposition: HOME/ ROUTINE Instructions: Atrial Fibrillation (DC), Heart Attack (DC) Additional Instructions: pt. cleared for discharge to Home today by and pt. to f/u with / [facility] in 1 week E r x sent to [facility] Referrals: Ruddy Hough MD [Staff Provider] - Ervin Lam MD [Staff Provider] -
== END 2017-06-13 20:00 | disposition home or self-care (01) | DRG 282 ==
LOC: H.ER 00:31 → H.ERHOLD 04:13 → H.TEL 08:24
PROVIDERS: ADMIT Internal Medicine; ATTEND Internal Medicine
PROC: 4A023N7 Measurement of Cardiac Sampling and Pressure, Left Heart, Percutaneous Approach (ICD-10-PCS; principal; 2017-06-11)
PROC: B201YZZ Plain Radiography of Multiple Coronary Arteries using Other Contrast (ICD-10-PCS; 2017-06-11)
PROC: B205YZZ Plain Radiography of Left Heart using Other Contrast (ICD-10-PCS; 2017-06-11)
DX: I21.4 Non-ST elevation (NSTEMI) myocardial infarction (principal); I25.10 Atherosclerotic heart disease of native coronary artery without angina pectoris; I10 Essential (primary) hypertension; E78.00 Pure hypercholesterolemia, unspecified; E78.5 Hyperlipidemia, unspecified; I48.91 Unspecified atrial fibrillation; Z88.2 Allergy status to sulfonamides; E11.9 Type 2 diabetes mellitus without complications; E03.9 Hypothyroidism, unspecified

== ENCOUNTER 2018-02-11 12:07 | Inpatient (IN) | payer OTHER ==
[2018-02-11 12:07] VITALS: BMI 22.9
--- NOTE | 2018-02-11 13:20 | ED PDOC ---
HPI: Chest Pain Time Seen by Provider: 02/11/18 12:30 Chief Complaint (Nursing): Palpitations Chief Complaint (Provider): Chest tightness History Per: Patient History/Exam Limitations: no limitations Onset/Duration Of Symptoms: Hrs (x 2) Current Symptoms Are (Timing): Still Present Quality: Tightness Additional Complaint(s): 88 year old female with a history of HTN, hypercholesterolemia and atrial fibrillation presents to the ED with chest tightness for the last two hours. Patient reports that when she feels tightness it is usually associated with atrial fibrillation, prompting ED visit. She is visiting her grandson from [place], but decided to come in anyway. Pain is non radiating. Patient is eating, drinking and urinating normally. She has been admitted due to atrial fibrillation in the past at home in [place]. At that time, her metaprolol was stopped and she began taking cardizem. Continues to take cardizem in addition to Zorelto. Denies shortness of breath, dizziness, palpitations, nausea and vomiting. PMD: none provided Past Medical History Reviewed: Historical Data, Nursing Documentation, Vital Signs Vital Signs: Last Vital Signs Temp 97 F L 02/11/18 12:20 Pulse 108 H 02/11/18 12:53 Resp 17 02/11/18 12:53 BP 133/65 02/11/18 12:53 Pulse Ox 100 02/11/18 12:53 - Medical History PMH: CAD, HTN, Hypercholesterolemia, Hyperlipidemia, Hypothyroidism - Surgical History Surgical History: Cholecystectomy, Tonsillectomy - Family History Family History: States: Unknown Family Hx - Home Medications Home Medications: Ambulatory Orders Medication Instructions Recorded Levothyroxine [Synthroid] 75 mcg PO DAILY 06/10/17 Metformin HCl [Glucophage] 1,000 mg PO BID 06/10/17 Alprazolam [Xanax] 0.25 mg PO Q12 PRN 02/11/18 Atorvastatin [Lipitor] 20 mg PO HS 02/11/18 Diltiazem HCl [Diltiazem 24Hr Cd] 180 mg PO DAILY 02/11/18 Lisinopril [Zestril] 5 mg PO DAILY 02/11/18 Rivaroxaban [Xarelto] 20 mg PO QPM 02/11/18 - Allergies Allergies/Adverse Reactions: Allergies Allergy/AdvReac Type Severity Reaction Status Date / Time Sulfa (Sulfonamide Allergy RASH Verified 06/10/17 01:07 Antibiotics) Review of Systems ROS Statement: Except As Marked, All Systems Reviewed And Found Negative Cardiovascular: Positive for: Chest Pain (chest tightness). Negative for: Palpitations Respiratory: Negative for: Shortness of Breath Gastrointestinal: Negative for: Nausea, Vomiting, Diarrhea Genitourinary Female: Negative for: Dysuria, Frequency, Incontinence, Hematuria Physical Exam - Reviewed Nursing Documentation Reviewed: Yes Vital Signs Reviewed: Yes - Physical Exam Appears: Positive for: Non-toxic, No Acute Distress Head Exam: Positive for: ATRAUMATIC, NORMAL INSPECTION, NORMOCEPHALIC Skin: Positive for: Normal Color, Warm, Dry Eye Exam: Positive for: Normal appearance, EOMI, PERRL Cardiovascular/Chest: Positive for: Tachycardia (with regular rhythm). Negative for: Murmur Respiratory: Positive for: Normal Breath Sounds (bilaterally). Negative for: Respiratory Distress Gastrointestinal/Abdominal: Positive for: Normal Exam, Soft. Negative for: Tenderness Extremity: Positive for: Pedal Edema (trace pedal edema bilateraly). Negative for: Deformity Neurologic/Psych: Positive for: Alert, Oriented. Negative for: Motor/Sensory Deficits - Laboratory Results Result Diagrams: 02/11/18 13:30 02/11/18 13:30 - ECG O2 Sat by Pulse Oximetry: 100 (RA) Pulse Ox Interpretation: Normal Medical Decision Making Medical Decision Makin:55 MDM: systolic blood pressure in triage 87; Repeat systolic 137 EKG 12:15pm: AF with HR 164, ST depression in anterolateral leads. Given Diltiazem 15 mg IVP; Heart rate response: 160s to 110s. chest tightness resolved when HR improved. Orders: --CMP --CBC --diltiazem 15 mg IVP --Dilt drip at 10mg/hr ordered repeat EKG 13:27: Afib, HR 113, ST depressions in anterolateral leads have resolved. --CXR Portable: no active disease Troponin: negative 13:30: re-evaluated, no complaints, no further chest tightness or SOB. Pt admitted under Dr. Lam for Afib with RVR to telemetry. Cardiology consulted (Dr. Hough) who stated that he will see patient in ED and agreed with plan. Scribe Attestation: Documented by Amelia Bailon acting as a scribe for Stormy Vázquez PA-C Provider Scribe Attestation: All medical record entries made by the Scribe were at my direction and personally dictated by me. I have reviewed the chart and agree that the record accurately reflects my personal performance of the history, physical exam, medical decision making, and the department course for this patient. I have also personally directed, reviewed, and agree with the discharge instructions and disposition. Disposition - Clinical Impression Clinical Impression: Atrial fibrillation with RVR - Patient ED Disposition Is Patient to be Admitted: Transfer of Care Discussed With : Ervin Lam Doctor Will See Patient In The: Hospital Counseled Patient/Family Regarding: Studies Performed, Diagnosis, Need For Followup - Disposition Disposition: Transfer of Care Disposition Time: 13:46 Condition: FAIR
[2018-02-11] MEDS ORDERED: Sodium Chloride 0.9% 1,000 ML IV STA (13:47)
[2018-02-11 13:56] LABS: ALB/GLOB RATIO 1.4 (1.0-2.1); ALBUMIN 4.3 g/dL (3.5-5.0); ALT/SGPT 33 U/L (9-52); AST/SGOT 23 U/L (14-36); BLOOD UREA NITROGEN 18 mg/dl (7-17); CALCIUM 9.6 mg/dL (8.4-10.2); GFR NON-AFRICAN AMERICAN > 60
[2018-02-11 13:59] LABS: BASO % 0.5 % (0.0-2.0); EOS % 0.7 % (0.0-4.0); HEMOGLOBIN 11.6 g/dL (12.0-16.0); LYMPH # 1.7 K/uL (1.0-4.3); LYMPH % 27.2 % (20.0-40.0); MEAN CELL VOLUME 82.8 fl (81.0-99.0); MEAN CORPUSCULAR HEMOGLOBIN 26.5 pg (27.0-31.0); MEAN PLATELET VOLUME 7.7 fl (7.2-11.7); MONO # 0.7 K/uL (0.0-0.8); MONO % 10.4 % (0.0-10.0); NEUT # 3.9 K/uL (1.8-7.0); NEUT % 61.2 % (50.0-75.0); RBC 4.37 Mil/uL (3.80-5.20); RED CELL DISTRIBUTION WIDTH 15.6 % (11.5-14.5); WHITE BLOOD COUNT 6.4 K/uL (4.8-10.8)
--- NOTE | 2018-02-11 14:41 | RAD ---
Date of service: 02/11/2018 HISTORY: Chest tightness. COMPARISON: 06/10/2017 FINDINGS: LUNGS: No active pulmonary disease. PLEURA: No significant pleural effusion identified, no pneumothorax apparent. CARDIOVASCULAR: No atherosclerotic calcification present Normal. OSSEOUS STRUCTURES: No significant abnormalities. VISUALIZED UPPER ABDOMEN: Normal. OTHER FINDINGS: None. IMPRESSION: No active disease. No significant interval change compared to the prior examination(s).
--- NOTE | 2018-02-11 16:50 | CARD ---
APPROVED REPORT Date of service: 02/11/2018 EKG Measurement Heart [id number] <Conclusion> Atrial fibrillation with rapid ventricular response Abnormal ECG
--- NOTE | 2018-02-11 19:09 | CP.PCM.CON ---
History of Present Illness - History of Present Illness History of Present Illness: Consultation for evaluation of chest pain and discomfort HPI: 88-year-old female with past medical history significant for hypertension dyslipidemia paroxysmal atrial fibrillation who was admitted back in June 2017 with an episode of chest discomfort and new onset A. fib at which time she had undergone a cardiac catheterization showing nonobstructive coronary artery disease with ectatic RCA she was initiated on calcium channel blockers along with Xarelto who is now presenting with episode of chest tightness for about 2 hours prior to presentation in the emergency room she was noted to be in atrial fibrillation with rapid ventricular response and was initiated on IV Cardizem she is visiting from [place] her grandson who lives at [place]. She had a similar episode back in June. Review of Systems - Review of Systems Systems not reviewed;Unavailable: Acuity of Condition - Constitutional Constitutional: As Per HPI - EENT Eyes: As Per HPI Ears: As Per HPI Nose/Mouth/Throat: As Per HPI - Breasts Breasts: As Per HPI - Cardiovascular Cardiovascular: As Per HPI - Respiratory Respiratory: As Per HPI - Gastrointestinal Gastrointestinal: As Per HPI - Genitourinary Genitourinary: As Per HPI - Reproductive: Female Reproductive:Female: As Per HPI - Menstruation Menstruation: As Per HPI - Musculoskeletal Musculoskeletal: As Per HPI - Integumentary Integumentary: As Per HPI - Neurological Neurological: As Per HPI - Psychiatric Psychiatric: As Per HPI - Endocrine Endocrine: As Per HPI - Hematologic/Lymphatic Hematologic: As Per HPI Past Patient History - Past Medical History & Family History Past Medical History?: Yes - Past Social History Smoking Status: Never Smoked - CARDIAC Hx Hypercholesterolemia: Yes Hx Hypertension: Yes - PULMONARY Hx Respiratory Disorders: No - NEUROLOGICAL Hx Neurological Disorder: No - ENDOCRINE/METABOLIC Hx Hypothyroidism: Yes - HEMATOLOGICAL/ONCOLOGICAL Hx Blood Disorders: No - MUSCULOSKELETAL/RHEUMATOLOGICAL Hx Musculoskeletal Disorders: No Hx Falls: No - GASTROINTESTINAL Hx Gastrointestinal Disorders: No - PSYCHIATRIC Hx Psychophysiologic Disorder: No Hx Substance Use: No - SURGICAL HISTORY Hx Cholecystectomy: Yes Hx Tonsillectomy: Yes - ANESTHESIA Hx Anesthesia: Yes Hx Anesthesia Reactions: No Hx Malignant Hyperthermia: No Meds Allergies/Adverse Reactions: Allergies Allergy/AdvReac Type Severity Reaction Status Date / Time Sulfa (Sulfonamide Allergy RASH Verified 06/10/17 01:07 Antibiotics) - Medications Medications: Current Medications Diltiazem HCl 125 mg/ Sodium (Chloride) 125 mls @ 5 mls/hr IV .Q24H ONE; Protocol Stop: 02/12/18 12:45 Last Titration: 02/11/18 13:18 Dose: 10 mg/hr, 10 mls/hr Physical Exam - Constitutional Appears: Well - Head Exam Head Exam: ATRAUMATIC, NORMAL INSPECTION, NORMOCEPHALIC - Eye Exam Eye Exam: EOMI, Normal appearance, PERRL Pupil Exam: NORMAL ACCOMODATION, PERRL - ENT Exam ENT Exam: Mucous Membranes Moist, Normal Exam - Neck Exam Neck exam: Positive for: Normal Inspection - Respiratory Exam Respiratory Exam: Clear to Auscultation Bilateral, NORMAL BREATHING PATTERN - Cardiovascular Exam Cardiovascular Exam: REGULAR RHYTHM - GI/Abdominal Exam GI & Abdominal Exam: Normal Bowel Sounds, Soft. absent: Tenderness - Extremities Exam Extremities exam: Positive for: normal inspection - Back Exam Back exam: NORMAL INSPECTION - Neurological Exam Neurological exam: Alert, CN II-XII Intact, Normal Gait, Oriented x3, Reflexes Normal - Psychiatric Exam Psychiatric exam: Normal Affect, Normal Mood - Skin Skin Exam: Dry, Intact, Normal Color, Warm Results - Vital Signs Recent Vital Signs: Last Vital Signs Temp 97 F L 02/11/18 12:20 Pulse 68 02/11/18 17:00 Resp 18 02/11/18 17:00 BP 109/70 02/11/18 17:00 Pulse Ox 99 02/11/18 17:00 - Labs Result Diagrams: 02/11/18 13:30 02/11/18 13:30 Labs: Laboratory Results - last 24 hr 02/11/18 02/11/18 13:30 13:30 WBC 6.4 RBC 4.37 Hgb 11.6 L Hct 36.2 MCV 82.8 MCH 26.5 L MCHC 32.0 L RDW 15.6 H Plt Count 226 MPV 7.7 Neut % (Auto) 61.2 Lymph % (Auto) 27.2 [place] % (Auto) 10.4 H Eos % (Auto) 0.7 Baso % (Auto) 0.5 Neut # (Auto) 3.9 Lymph # (Auto) 1.7 [place] # (Auto) 0.7 Eos # (Auto) 0.0 Baso # (Auto) 0.0 Sodium 140 Potassium 4.2 Chloride 104 Carbon Dioxide 25 Anion Gap 15 BUN 18 H Creatinine 0.7 Est GFR ( Amer) > 60 Est GFR (Non-Af Amer) > 60 Random Glucose 133 H Calcium 9.6 Total Bilirubin 0.4 AST 23 ALT 33 Alkaline Phosphatase 67 Troponin I < 0.0120 Total Protein 7.3 Albumin 4.3 Globulin 3.0 Albumin/Globulin Ratio 1.4 Assessment & Plan (1) Acute chest pain Assessment and Plan: 2'to episode of afib Status: Acute (2) Atrial fibrillation with RVR Assessment and Plan: cont ccb cont xarelto Status: Acute Priority: High (3) HTN (hypertension) Assessment and Plan: cont lisinopril Status: Acute
[2018-02-12] MEDS: Levothyroxine 75 MCG TAB PO SCH (06:02)
[2018-02-12 06:57] LABS: ALB/GLOB RATIO 1.2 (1.0-2.1); ALBUMIN 3.5 g/dL (3.5-5.0); ALT/SGPT 20 U/L (9-52); AST/SGOT 56 U/L (14-36); BLOOD UREA NITROGEN 18 mg/dl (7-17); CALCIUM 9.1 mg/dL (8.4-10.2); GFR NON-AFRICAN AMERICAN > 60
[2018-02-12] MEDS: diltiaZEM 180 mg/24 Hours CD Cap PO SCH (09:00)
--- NOTE | 2018-02-12 10:33 | CP.PCM.PN ---
Subjective - Date & Time of Evaluation Date of Evaluation: 02/12/18 Time of Evaluation: 10:31 - Subjective Subjective: feeling fine stable Objective - Vital Signs/Intake and Output Vital Signs (last 24 hours): Temp Pulse Resp BP Pulse Ox 97.9 F 68 18 143/78 98 02/12/18 07:53 02/12/18 09:00 02/12/18 07:53 02/12/18 09:00 02/12/18 07:53 - Medications Medications: Current Medications Alprazolam (Xanax) 0.25 mg PO Q12 PRN PRN Reason: Anxiety Stop: 02/18/18 20:03 Atorvastatin Calcium (Lipitor) 20 mg PO HS [facility] Last Admin: 02/11/18 22:19 Dose: 20 mg Diltiazem HCl (Cardizem Cd) 180 mg PO DAILY [facility] Last Admin: 02/12/18 09:00 Dose: 180 mg Diltiazem HCl 125 mg/ Sodium (Chloride) 125 mls @ 5 mls/hr IV .Q24H ONE; Protocol Stop: 02/12/18 12:45 Last Titration: 02/11/18 13:18 Dose: 10 mg/hr, 10 mls/hr Levothyroxine Sodium (Synthroid) 75 mcg PO DAILY@0630 [facility] Last Admin: 02/12/18 06:02 Dose: 75 mcg Lisinopril (Zestril) 5 mg PO DAILY [facility] Metformin HCl (Glucophage) 1,000 mg PO BIDWM [facility] Last Admin: 02/12/18 09:00 Dose: 1,000 mg Rivaroxaban (Xarelto) 20 mg PO QPM [facility]; Protocol Last Admin: 02/11/18 22:53 Dose: 20 mg - Labs Labs: 02/11/18 13:30 02/12/18 05:10 - Constitutional Appears: Well - Head Exam Head Exam: ATRAUMATIC, NORMAL INSPECTION, NORMOCEPHALIC - Eye Exam Eye Exam: EOMI, Normal appearance, PERRL Pupil Exam: NORMAL ACCOMODATION, PERRL - ENT Exam ENT Exam: Mucous Membranes Moist, Normal Exam - Neck Exam Neck Exam: Full ROM, Normal Inspection. absent: Lymphadenopathy - Respiratory Exam Respiratory Exam: Clear to Ausculation Bilateral, NORMAL BREATHING PATTERN - Cardiovascular Exam Cardiovascular Exam: REGULAR RHYTHM, +S1, +S2. absent: Murmur - GI/Abdominal Exam GI & Abdominal Exam: Soft, Normal Bowel Sounds. absent: Tenderness - Extremities Exam Extremities Exam: Full ROM, Normal Capillary Refill, Normal Inspection. absent: Joint Swelling, Pedal Edema - Back Exam Back Exam: NORMAL INSPECTION - Neurological Exam Neurological Exam: Alert, Awake, CN II-XII Intact, Normal Gait, Oriented x3 - Psychiatric Exam Psychiatric exam: Normal Affect, Normal Mood - Skin Skin Exam: Dry, Intact, Normal Color, Warm Assessment and Plan (1) Acute chest pain Assessment & Plan: 2' to afib cath in 06/22 - ectatic RCA with non-obstructive CAD asa, bb Status: Acute (2) Atrial fibrillation with RVR Assessment & Plan: dc IV cardizem cont ccb add amiodarone 400mg po bid cont xarelto Status: Acute (3) HTN (hypertension) Assessment & Plan: cont lisinopril Status: Acute
--- NOTE | 2018-02-12 20:27 | CARD ---
APPROVED REPORT Date of service: 02/11/2018 EKG Measurement Heart [id number] <Conclusion> Atrial fibrillation with rapid ventricular response ST & T wave abnormality, consider inferior ischemia Abnormal ECG
--- NOTE | 2018-02-12 20:57 | CARD ---
APPROVED REPORT Date of service: 02/12/2018 EXAM: Two-dimensional and M-mode echocardiogram with Doppler and color Doppler. Other Information Quality : GoodRhythm : NSR INDICATION Atrial Fibrillation 2D DIMENSIONS IVSd1.16 (0.7-1.1cm)LVDd4.07 (3.9-5.9cm) LVOT Diameter2.00 (1.8-2.4cm)PWd1.03 (0.7-1.1cm) IVSs1.58 (0.8-1.2cm)LVDs2.60 (2.5-4.0cm) FS (%) 36.2 %PWs1.19 (0.8-1.2cm) M-Mode DIMENSIONS Left Atrium (MM)4.41 (2.5-4.0cm)IVSd1.08 (0.7-1.1cm) Aortic Root2.65 (2.2-3.7cm)LVDd4.66 (4.0-5.6cm) Aortic Cusp Exc.1.68 (1.5-2.0cm)PWd1.21 (0.7-1.1cm) IVSs1.38 cmFS (%) 37 % LVDs2.95 (2.0-3.8cm)PWs1.32 cm Aortic Valve AoV Peak Bxuaseav433.8cm/sAoV VTI24.2cmAO Peak GR.8mmHg LVOT Peak Yitsilbm082.6cm/sLVOT VTI20.68cmAO Mean GR.5mmHg DAT (VMAX)1.69wy3JOS (VTI)1.62cm2 Mitral Valve MV E Ldakufkb08.6cm/sMV DECEL SCEB226uhIN A Nqizyfko321.4cm/s MV YWH71hyB/A ratio0.6MVA (PHT)2.67cm2 TDI Lateral E' Peak V3.75cm/sMedial E' Peak V5.79cm/sE/Lateral E'17.0 E/Medial E'11.0 LEFT VENTRICLE The left ventricle is normal size. There is borderline concentric left ventricular hypertrophy. The left ventricular systolic function is normal. The estimated ejection fraction is 60-65% No regional wall motion abnormalities noted.. Transmitral Doppler flow pattern is Grade I-abnormal relaxation pattern. No left ventricle thrombus noted on this study. There is no ventricular septal defect visualized. There is no left ventricular aneurysm. There is no mass noted in the left ventricle. RIGHT VENTRICLE The right ventricle is normal size. There is normal right ventricular wall thickness. The right ventricular systolic function is normal. ATRIA The left atrium is mildly dilated. The right atrium size is normal. The interatrial septum is intact with no evidence for an atrial septal defect. AORTIC VALVE The aortic valve is normal in structure. No aortic regurgitation is present. There is no aortic valvular stenosis. There is no aortic valvular vegetation. MITRAL VALVE The mitral valve is normal in structure. There is no evidence of mitral valve prolapse. There is no mitral valve stenosis. There is no mitral valve regurgitation noted. TRICUSPID VALVE The tricuspid valve is normal in structure. There is no tricuspid valve regurgitation noted. There is no tricuspid valve prolapse or vegetation. There is no tricuspid valve stenosis. PULMONIC VALVE The pulmonary valve is normal in structure. There is no pulmonic valvular regurgitation. There is no pulmonic valvular stenosis. GREAT VESSELS The aortic root is normal in size. The ascending aorta is normal in size. The pulmonary artery is normal. The IVC is normal in size and collapses >50% with inspiration. PERICARDIAL EFFUSION There is no pericardial effusion. There is no pleural effusion. <Conclusion> There is borderline concentric left ventricular hypertrophy. The estimated ejection fraction is 60-65% Transmitral Doppler flow pattern is Grade I-abnormal relaxation pattern. The left atrium is mildly dilated. There is no significant tricuspid valve regurgitation noted.
[2018-02-13] MEDS: Levothyroxine 75 MCG TAB PO SCH (06:17)
[2018-02-13 07:58] VITALS: RESP 18
[2018-02-13] MEDS: diltiaZEM 180 mg/24 Hours CD Cap PO SCH (09:11)
--- NOTE | 2018-02-13 19:09 | CP.PCM.PN ---
Subjective - Date & Time of Evaluation Date of Evaluation: 02/13/18 Time of Evaluation: 19:08 - Subjective Subjective: HR stable Objective - Vital Signs/Intake and Output Vital Signs (last 24 hours): Temp Pulse Resp BP Pulse Ox 98.4 F 72 18 118/67 95 02/13/18 15:46 02/13/18 16:33 02/13/18 15:46 02/13/18 16:33 02/13/18 15:46 - Medications Medications: Current Medications Alprazolam (Xanax) 0.25 mg PO Q12 PRN PRN Reason: Anxiety Stop: 02/18/18 20:03 Amiodarone HCl (Cordarone) 200 mg PO BID [facility] Last Admin: 02/13/18 16:33 Dose: 200 mg Atorvastatin Calcium (Lipitor) 20 mg PO HS [facility] Last Admin: 02/12/18 21:13 Dose: 20 mg Diltiazem HCl (Cardizem Cd) 180 mg PO DAILY [facility] Last Admin: 02/13/18 09:11 Dose: 180 mg Levothyroxine Sodium (Synthroid) 75 mcg PO DAILY@0630 [facility] Last Admin: 02/13/18 06:17 Dose: 75 mcg Lisinopril (Zestril) 5 mg PO DAILY [facility] Last Admin: 02/13/18 09:13 Dose: 5 mg Metformin HCl (Glucophage) 1,000 mg PO BIDWM [facility] Last Admin: 02/13/18 16:34 Dose: 1,000 mg Rivaroxaban (Xarelto) 20 mg PO QPM [facility]; Protocol Last Admin: 02/13/18 17:25 Dose: 20 mg - Labs Labs: 02/11/18 13:30 02/12/18 05:10 - Constitutional Appears: Well - Head Exam Head Exam: ATRAUMATIC, NORMAL INSPECTION, NORMOCEPHALIC - Eye Exam Eye Exam: EOMI, Normal appearance, PERRL Pupil Exam: NORMAL ACCOMODATION, PERRL - ENT Exam ENT Exam: Mucous Membranes Moist, Normal Exam - Neck Exam Neck Exam: Full ROM, Normal Inspection. absent: Lymphadenopathy - Respiratory Exam Respiratory Exam: Clear to Ausculation Bilateral, NORMAL BREATHING PATTERN - Cardiovascular Exam Cardiovascular Exam: REGULAR RHYTHM, +S1, +S2. absent: Murmur - GI/Abdominal Exam GI & Abdominal Exam: Soft, Normal Bowel Sounds. absent: Tenderness - Extremities Exam Extremities Exam: Full ROM, Normal Capillary Refill, Normal Inspection. absent: Joint Swelling, Pedal Edema - Back Exam Back Exam: NORMAL INSPECTION - Neurological Exam Neurological Exam: Alert, Awake, CN II-XII Intact, Normal Gait, Oriented x3 - Psychiatric Exam Psychiatric exam: Normal Affect, Normal Mood - Skin Skin Exam: Dry, Intact, Normal Color, Warm Assessment and Plan (1) Acute chest pain Status: Acute (2) Atrial fibrillation with RVR Status: Acute (3) HTN (hypertension) Status: Acute
--- NOTE | 2018-02-14 01:26 | CP.PCM.HP ---
Past Patient History - Past Medical History & Family History Past Medical History?: Yes - Past Social History Smoking Status: Never Smoked - CARDIAC Hx Hypercholesterolemia: Yes Hx Hypertension: Yes - PULMONARY Hx Respiratory Disorders: No - NEUROLOGICAL Hx Neurological Disorder: No - ENDOCRINE/METABOLIC Hx Hypothyroidism: Yes - HEMATOLOGICAL/ONCOLOGICAL Hx Blood Disorders: No - MUSCULOSKELETAL/RHEUMATOLOGICAL Hx Musculoskeletal Disorders: No Hx Falls: No - GASTROINTESTINAL Hx Gastrointestinal Disorders: No - PSYCHIATRIC Hx Psychophysiologic Disorder: No Hx Substance Use: No - SURGICAL HISTORY Hx Cholecystectomy: Yes Hx Tonsillectomy: Yes - ANESTHESIA Hx Anesthesia: Yes Hx Anesthesia Reactions: No Hx Malignant Hyperthermia: No Meds Home Medications: Home Medication List Medication Instructions Recorded Confirmed Type Dronedarone [Multaq] 400 mg PO BIDWM #60 tab 02/12/18 Rx Allergies/Adverse Reactions: Allergies Allergy/AdvReac Type Severity Reaction Status Date / Time Sulfa (Sulfonamide Allergy RASH Verified 06/10/17 01:07 Antibiotics) Results - Vital Signs Recent Vital Signs: Last Vital Signs Temp 97.4 F L 02/14/18 00:16 Pulse 71 02/14/18 00:16 Resp 18 02/14/18 00:16 BP 114/60 02/14/18 00:16 Pulse Ox 98 02/14/18 00:16 - Labs Result Diagrams: 02/11/18 13:30 02/12/18 05:10 Labs: Laboratory Results - last 24 hr 02/13/18 02/13/18 02/13/18 05:13 10:59 16:07 POC Glucose (mg/dL) 87 128 H 95
--- NOTE | 2018-02-14 01:27 | CP.PCM.PN ---
Subjective - Date & Time of Evaluation Date of Evaluation: 02/12/18 Time of Evaluation: 16:05 Objective - Vital Signs/Intake and Output Vital Signs (last 24 hours): Temp Pulse Resp BP Pulse Ox 97.4 F L 71 18 114/60 98 02/14/18 00:16 02/14/18 00:16 02/14/18 00:16 02/14/18 00:16 02/14/18 00:16 - Medications Medications: Current Medications Alprazolam (Xanax) 0.25 mg PO Q12 PRN PRN Reason: Anxiety Stop: 02/18/18 20:03 Amiodarone HCl (Cordarone) 200 mg PO BID [facility] Last Admin: 02/13/18 16:33 Dose: 200 mg Atorvastatin Calcium (Lipitor) 20 mg PO HS [facility] Last Admin: 02/13/18 21:30 Dose: 20 mg Diltiazem HCl (Cardizem Cd) 180 mg PO DAILY [facility] Last Admin: 02/13/18 09:11 Dose: 180 mg Levothyroxine Sodium (Synthroid) 75 mcg PO DAILY@0630 [facility] Last Admin: 02/13/18 06:17 Dose: 75 mcg Lisinopril (Zestril) 5 mg PO DAILY [facility] Last Admin: 02/13/18 09:13 Dose: 5 mg Metformin HCl (Glucophage) 1,000 mg PO BIDWM [facility] Last Admin: 02/13/18 16:34 Dose: 1,000 mg Rivaroxaban (Xarelto) 20 mg PO QPM [facility]; Protocol Last Admin: 02/13/18 17:25 Dose: 20 mg - Labs Labs: 02/11/18 13:30 02/12/18 05:10
--- NOTE | 2018-02-14 01:28 | CP.PCM.PN ---
Subjective - Date & Time of Evaluation Date of Evaluation: 02/13/18 Time of Evaluation: 13:20 Objective - Vital Signs/Intake and Output Vital Signs (last 24 hours): Temp Pulse Resp BP Pulse Ox 97.4 F L 71 18 114/60 98 02/14/18 00:16 02/14/18 00:16 02/14/18 00:16 02/14/18 00:16 02/14/18 00:16 - Medications Medications: Current Medications Alprazolam (Xanax) 0.25 mg PO Q12 PRN PRN Reason: Anxiety Stop: 02/18/18 20:03 Amiodarone HCl (Cordarone) 200 mg PO BID [facility] Last Admin: 02/13/18 16:33 Dose: 200 mg Atorvastatin Calcium (Lipitor) 20 mg PO HS [facility] Last Admin: 02/13/18 21:30 Dose: 20 mg Diltiazem HCl (Cardizem Cd) 180 mg PO DAILY [facility] Last Admin: 02/13/18 09:11 Dose: 180 mg Levothyroxine Sodium (Synthroid) 75 mcg PO DAILY@0630 [facility] Last Admin: 02/13/18 06:17 Dose: 75 mcg Lisinopril (Zestril) 5 mg PO DAILY [facility] Last Admin: 02/13/18 09:13 Dose: 5 mg Metformin HCl (Glucophage) 1,000 mg PO BIDWM [facility] Last Admin: 02/13/18 16:34 Dose: 1,000 mg Rivaroxaban (Xarelto) 20 mg PO QPM [facility]; Protocol Last Admin: 02/13/18 17:25 Dose: 20 mg - Labs Labs: 02/11/18 13:30 02/12/18 05:10
[2018-02-14] MEDS: Levothyroxine 75 MCG TAB PO SCH (05:32)
[2018-02-14] MEDS: diltiaZEM 180 mg/24 Hours CD Cap PO SCH (08:46)
[2018-02-14 15:57] VITALS: BP 126/77; PULSE 77; TEMP 97.8; O2SAT 96
--- NOTE | 2018-02-14 22:41 | CP.PCM.DIS ---
Provider - Provider Date of Admission: 02/11/18 13:46 Attending physician: Ervin Lam MD Consults: 02/11/18 22:11 Cardiology Consult Routine Comment: Consulting Provider: Ruddy Hough Consulting Physician: Ruddy Hough Reason for Consult: elevated troponin Hospital Course - Lab Results Lab Results: Most Recent Lab Values WBC 6.4 K/uL (4.8-10.8) 02/11/18 13:30 RBC 4.37 Mil/uL (3.80-5.20) 02/11/18 13:30 Hgb 11.6 g/dL (12.0-16.0) L 02/11/18 13:30 Hct 36.2 % (34.0-47.0) 02/11/18 13:30 MCV 82.8 fl (81.0-99.0) 02/11/18 13:30 MCH 26.5 pg (27.0-31.0) L 02/11/18 13:30 MCHC 32.0 g/dL (33.0-37.0) L 02/11/18 13:30 RDW 15.6 % (11.5-14.5) H 02/11/18 13:30 Plt Count 226 K/uL (130-400) 02/11/18 13:30 MPV 7.7 fl (7.2-11.7) 02/11/18 13:30 Neut % (Auto) 61.2 % (50.0-75.0) 02/11/18 13:30 Lymph % (Auto) 27.2 % (20.0-40.0) 02/11/18 13:30 [place] % (Auto) 10.4 % (0.0-10.0) H 02/11/18 13:30 Eos % (Auto) 0.7 % (0.0-4.0) 02/11/18 13:30 Baso % (Auto) 0.5 % (0.0-2.0) 02/11/18 13:30 Neut # (Auto) 3.9 K/uL (1.8-7.0) 02/11/18 13:30 Lymph # (Auto) 1.7 K/uL (1.0-4.3) 02/11/18 13:30 [place] # (Auto) 0.7 K/uL (0.0-0.8) 02/11/18 13:30 Eos # (Auto) 0.0 K/uL (0.0-0.7) 02/11/18 13:30 Baso # (Auto) 0.0 K/uL (0.0-0.2) 02/11/18 13:30 Sodium 141 mmol/l (132-148) 02/12/18 05:10 Potassium 4.6 MMOL/L (3.6-5.0) 02/12/18 05:10 Chloride 107 mmol/L (98-107) 02/12/18 05:10 Carbon Dioxide 24 mmol/L (22-30) 02/12/18 05:10 Anion Gap 15 (10-20) 02/12/18 05:10 BUN 18 mg/dl (7-17) H 02/12/18 05:10 Creatinine 0.7 mg/dl (0.7-1.2) 02/12/18 05:10 Est GFR ( Amer) > 60 02/12/18 05:10 Est GFR (Non-Af Amer) > 60 02/12/18 05:10 POC Glucose (mg/dL) 102 mg/dL (65-110) 02/14/18 16:11 Random Glucose 88 mg/dL (65-105) 02/12/18 05:10 Calcium 9.1 mg/dL (8.4-10.2) 02/12/18 05:10 Magnesium 1.6 MG/DL (1.6-2.3) 02/12/18 05:10 Total Bilirubin 0.4 mg/dl (0.2-1.3) 02/12/18 05:10 AST 56 U/L (14-36) H D 02/12/18 05:10 ALT 20 U/L (9-52) 02/12/18 05:10 Alkaline Phosphatase 54 U/L (38-126) 02/12/18 05:10 Troponin I 0.1120 ng/mL (0.00-0.120) 02/12/18 05:10 Total Protein 6.4 G/DL (6.3-8.2) 02/12/18 05:10 Albumin 3.5 g/dL (3.5-5.0) 02/12/18 05:10 Globulin 2.8 gm/dL (2.2-3.9) 02/12/18 05:10 Albumin/Globulin Ratio 1.2 (1.0-2.1) 02/12/18 05:10 Discharge Exam - Head Exam Head Exam: ATRAUMATIC, NORMAL INSPECTION, NORMOCEPHALIC Discharge Plan - Discharge Medications Prescriptions: Amiodarone [Cordarone] 200 mg PO BID #60 tab - Follow Up Plan Condition: FAIR Disposition: HOME/ ROUTINE Instructions: Atrial Fibrillation (DC), Chest Pain (DC) Additional Instructions: please follow up with concrete handler in 1 week Referrals: Ruddy Hough MD [Staff Provider] - Ervin Lam MD [Family Provider] -
== END 2018-02-14 18:25 | disposition home or self-care (01) | DRG 310 ==
LOC: H.ER 12:07 → H.ERHOLD 13:46 → H.TEL 21:24
PROVIDERS: ADMIT Internal Medicine; ATTEND Internal Medicine
DX: I48.0 Paroxysmal atrial fibrillation (principal); I25.10 Atherosclerotic heart disease of native coronary artery without angina pectoris; E03.9 Hypothyroidism, unspecified; I10 Essential (primary) hypertension; E78.00 Pure hypercholesterolemia, unspecified; E78.5 Hyperlipidemia, unspecified; Z79.01 Long term (current) use of anticoagulants; Z88.2 Allergy status to sulfonamides

== ENCOUNTER 2018-02-21 18:56 | Emergency (ER) | payer OTHER ==
[2018-02-21 18:56] VITALS: BMI 22.9
[2018-02-21 19:09] VITALS: O2SAT 99
[2018-02-21] MEDS ORDERED: Sodium Chloride 0.9% 1,000 ML IV STA (19:36)
[2018-02-21 20:10] LABS: BASO % 0.5 % (0.0-2.0); EOS % 0.2 % (0.0-4.0); HEMOGLOBIN 11.8 g/dL (12.0-16.0); LYMPH # 1.5 K/uL (1.0-4.3); LYMPH % 26.3 % (20.0-40.0); MEAN CELL VOLUME 81.4 fl (81.0-99.0); MEAN CORPUSCULAR HEMOGLOBIN 26.9 pg (27.0-31.0); MEAN PLATELET VOLUME 7.5 fl (7.2-11.7); MONO # 0.5 K/uL (0.0-0.8); MONO % 8.8 % (0.0-10.0); NEUT # 3.8 K/uL (1.8-7.0); NEUT % 64.2 % (50.0-75.0); NRBC % 0.1 % (0.0-0.0); RBC 4.39 Mil/uL (3.80-5.20); RED CELL DISTRIBUTION WIDTH 15.4 % (11.5-14.5); WHITE BLOOD COUNT 5.9 K/uL (4.8-10.8)
[2018-02-21 20:28] LABS: INR 1.7
[2018-02-21 20:29] LABS: PARTIAL THROMBOPLASTIN TIME 37.1 Seconds (25.6-37.1)
--- NOTE | 2018-02-21 20:44 | ED PDOC ---
HPI: Abdomen Chief Complaint (Nursing): GI Problem Chief Complaint (Provider): GI Problem History Per: Patient History/Exam Limitations: no limitations Onset/Duration Of Symptoms: Days (x4) Current Symptoms Are (Timing): Still Present Location Of Pain/Discomfort: Epigastric Quality Of Discomfort: "Pain" Associated Symptoms: Nausea, Vomiting. denies: Fever, Diarrhea Additional Complaint(s): 88 year old female with a history of afib, type 2 dm, and CAD presents to the ED with 4 days of epigastric discomfort, nausea, and vomiting. Patient was discharged from this hospital recently and started on amiodarone. She states that after the first day of taking it, she felt nauseous, so she was instructed to take half a dose in the morning and night. However, her pharmacist said that the medication is not scored so she cant do that. She has been vomiting a lot, causing her to lose 4 pounds and feel dehydrated. Patient denies any fevers or diarrhea. She requested findings be discussed with Dr. Hough and Dr. Lam. PMD: Dr. Lam Abnormal Vaginal Bleeding: No Past Medical History Reviewed: Historical Data, Nursing Documentation, Vital Signs Vital Signs: Last Vital Signs Temp 97.5 F L 02/21/18 19:06 Pulse 70 02/21/18 19:06 Resp 17 02/21/18 19:06 BP 164/92 H 02/21/18 19:06 Pulse Ox 99 02/21/18 19:06 - Medical History PMH: Atrial Fibrillation, CAD, HTN, Hypercholesterolemia, Hyperlipidemia, Hypothyroidism - Surgical History Surgical History: Cholecystectomy, Tonsillectomy - Family History Family History: States: Unknown Family Hx - Home Medications Home Medications: Ambulatory Orders Medication Instructions Recorded Levothyroxine [Synthroid] 75 mcg PO DAILY 06/10/17 Metformin HCl [Glucophage] 1,000 mg PO BID 06/10/17 Alprazolam [Xanax] 0.25 mg PO Q12 PRN 02/11/18 Atorvastatin [Lipitor] 20 mg PO HS 02/11/18 Diltiazem HCl [Diltiazem 24Hr Cd] 180 mg PO DAILY 02/11/18 Lisinopril [Zestril] 2.5 mg PO DAILY 02/11/18 Rivaroxaban [Xarelto] 20 mg PO QPM 02/11/18 Amiodarone [Cordarone] 200 mg PO BID #60 tab 02/14/18 Ranitidine HCl 150 mg PO DAILY #30 tablet 02/22/18 - Allergies Allergies/Adverse Reactions: Allergies Allergy/AdvReac Type Severity Reaction Status Date / Time Sulfa (Sulfonamide Allergy RASH Verified 02/21/18 19:09 Antibiotics) Review of Systems ROS Statement: Except As Marked, All Systems Reviewed And Found Negative Constitutional: Negative for: Fever Gastrointestinal: Positive for: Nausea, Vomiting, Abdominal Pain. Negative for: Diarrhea Physical Exam - Reviewed Nursing Documentation Reviewed: Yes Vital Signs Reviewed: Yes - Physical Exam Appears: Positive for: Non-toxic, No Acute Distress Head Exam: Positive for: ATRAUMATIC, NORMOCEPHALIC Skin: Positive for: Normal Color, Warm, Dry Eye Exam: Positive for: EOMI, Normal appearance, PERRL Neck: Positive for: Normal Cardiovascular/Chest: Positive for: Regular Rate, Rhythm. Negative for: Murmur Respiratory: Positive for: Normal Breath Sounds. Negative for: Respiratory Di stress Gastrointestinal/Abdominal: Positive for: Soft, Tenderness (epigastric tenderness to palpation ) Extremity: Positive for: Normal ROM (upper and lower). Negative for: Pedal Edema, Deformity Neurologic/Psych: Positive for: Alert, Oriented (x3) - Laboratory Results Result Diagrams: 02/21/18 20:09 02/21/18 19:45 Lab Results: PT 19.0 Seconds (9.8-13.1) H 02/21/18 19:45 INR 1.7 02/21/18 19:45 APTT 37.1 Seconds (25.6-37.1) 02/21/18 19:45 Troponin I < 0.0120 ng/mL (0.00-0.120) 02/21/18 19:45 - ECG O2 Sat by Pulse Oximetry: 99 (RA) Pulse Ox Interpretation: Normal Medical Decision Making Medical Decision Making: Time: 1933 Workup for nausea and vomiting, possibly secondary to pill gastritis. Workup for infectious process. Plan: --labs --IV fluids --Zofran --Pepcid --Spoke to Dr. Hough who is agrees with workup and is requesting a call back with lab results. Scribe Attestation: Documented by Bernie Dotson, acting as a scribe for Mechelle Ledezma MD. Provider Scribe Attestation: All medical record entries made by the Scribe were at my direction and personally dictated by me. I have reviewed the chart and agree that the record accurately reflects my personal performance of the history, physical exam, medical decision making, and the department course for this patient. I have also personally directed, reviewed, and agree with the discharge instructions and disposition. Time: 2349 -- Labs with normal limits. Discussed with Dr. Hough who agrees patient is medically safe for discharge home. At this time, patient is tolerating PO. Discussed plan to discharge home with patient who agrees. However, patient states she does not feel safe going home in the dark as building is not well lit. Patient told she can stay in the ED until light out in the morning at which time she will be able to get an Uber home. Patient currently eating a sandwich in the ED. Patient prefers to take home medications that she brought with her. No additional medical intervention needed at this time. Patient given a prescription of ranitidine. Patient additionally instructed to contact Dr. Hough and Dr. Lopez in the morning. Scribe Attestation: Documented by Peña Sosa, acting as a scribe for Mechelle Ledezma MD. Provider Scribe Attestation: All medical record entries made by the Scribe were at my direction and personally dictated by me. I have reviewed the chart and agree that the record accurately reflects my personal performance of the history, physical exam, medical decision making, and the department course for this patient. I have also personally directed, reviewed, and agree with the discharge instructions and disposition. Disposition - Clinical Impression Clinical Impression: Gastroenteritis - Disposition Referrals: Colin Warner MD, PhD [Staff Provider] - Disposition Time: 23:49 Condition: IMPROVED Additional Instructions: Take Ranitidine daily for gastritis. Call Dr. Hough this morning (SundayFeb 22) to discuss medications and taking Ranitidine (Zantac). Contact the commutator assembler for further evaluation of gastritis. Return to the emergency department if symptoms worsen or if new symptoms develop. Prescriptions: Ranitidine HCl 150 mg PO DAILY #30 tablet Instructions: Gastritis (DC) Forms: [employer] (Amharic) Print Language: UKRAINIAN
[2018-02-21 20:45] LABS: ALB/GLOB RATIO 1.4 (1.0-2.1); ALBUMIN 4.5 g/dL (3.5-5.0); ALT/SGPT 30 U/L (9-52); AST/SGOT 24 U/L (14-36); BLOOD UREA NITROGEN 22 mg/dl (7-17); CALCIUM 9.6 mg/dL (8.4-10.2); GFR NON-AFRICAN AMERICAN > 60; LIPASE 86 U/L (23-300)
[2018-02-22 01:31] VITALS: BP 110/53; PULSE 61; RESP 18; TEMP 97.6
[2018-02-22 08:15] LABS: VENOUS BLOOD GAS BASE EXCESS 3.7 mmol/L (0.0-2.0); VENOUS BLOOD GAS PCO2 49 mmHg (40-60); VENOUS BLOOD GAS PO2 21 mm/Hg (30-55); VENOUS BLOOD PH 7.39 (7.32-7.43)
--- NOTE | 2018-02-22 12:34 | RAD ---
Date of service: 02/21/2018 HISTORY: possible admission COMPARISON: 02/11/2018. FINDINGS: LUNGS: No active pulmonary disease. PLEURA: No significant pleural effusion identified, no pneumothorax apparent. CARDIOVASCULAR: No atherosclerotic calcification present No radiographic findings to suggest acute or significant cardiovascular disease. OSSEOUS STRUCTURES: No significant abnormalities. VISUALIZED UPPER ABDOMEN: Normal. OTHER FINDINGS: None. IMPRESSION: No active disease. No significant interval change compared to the prior examination(s).
== END 2018-02-22 00:03 | disposition home or self-care (01) ==
LOC: H.ER 18:56
DX: K52.9 Noninfective gastroenteritis and colitis, unspecified (principal); E03.9 Hypothyroidism, unspecified; E78.00 Pure hypercholesterolemia, unspecified; I10 Essential (primary) hypertension; I25.10 Atherosclerotic heart disease of native coronary artery without angina pectoris; I48.91 Unspecified atrial fibrillation
CPT/HCPCS: 71045; 80053; 82803; 82948; 83690; 84484; 85025; 85610; 85730; 87804; 96361; 96374; 96375; 99285; J2405; J7030

== ENCOUNTER 2018-02-26 15:42 | Observation (INO) | payer OTHER ==
[2018-02-26 15:42] VITALS: BMI 22.9
[2018-02-26 17:09] LABS: BASO # 0.1 K/uL (0.0-0.2); BASO % 0.9 % (0.0-2.0); EOS % 0.2 % (0.0-4.0); HEMOGLOBIN 11.9 g/dL (12.0-16.0); LYMPH # 1.2 K/uL (1.0-4.3); LYMPH % 17.1 % (20.0-40.0); MEAN CELL VOLUME 82.3 fl (81.0-99.0); MEAN CORPUSCULAR HEMOGLOBIN 26.8 pg (27.0-31.0); MEAN CORPUSCULAR HGB CONC 32.5 g/dL (33.0-37.0); MEAN PLATELET VOLUME 7.7 fl (7.2-11.7); MONO # 0.4 K/uL (0.0-0.8); MONO % 6.4 % (0.0-10.0); NEUT # 5.3 K/uL (1.8-7.0); NEUT % 75.4 % (50.0-75.0); RBC 4.45 Mil/uL (3.80-5.20); RED CELL DISTRIBUTION WIDTH 16.2 % (11.5-14.5)
--- NOTE | 2018-02-26 17:11 | ED PDOC ---
HPI: Abdomen Time Seen by Provider: 02/26/18 16:10 Chief Complaint (Nursing): GI Problem Chief Complaint (Provider): Nausea, vomiting History Per: Patient History/Exam Limitations: no limitations Onset/Duration Of Symptoms: Days Outside of [place] travel?: No Current Symptoms Are (Timing): Still Present Associated Symptoms: Nausea, Vomiting, Loss Of Appetite Additional Complaint(s): 88yo female, with history of hypertension, hypothyroids, recent diagnosis of Afib, comes to ER reporting 1 week of nausea, vomiting, poor appetite and unintentional weight loss of 8lbs. She denies any abdominal pain or headache but does report an episode of diarrhea and non-bloody, non-bilious vomiting as well. Patient was seen in this ER several days ago for similar symptoms and was discharged after treatment; patient was noted to be tolerating PO intake in ER but states when she returned home, her symptoms returned immediately. She otherwise denies urinary symptoms and offers no additional complaints. PMD: Dr. Lam Medical Legal Investigator: Dr. Hough Past Medical History Reviewed: Historical Data, Nursing Documentation, Vital Signs Vital Signs: Last Vital Signs Temp 97.9 F 02/26/18 15:51 Pulse 74 02/26/18 15:51 Resp 16 02/26/18 15:51 BP 149/75 02/26/18 15:51 Pulse Ox 98 02/26/18 15:51 - Medical History PMH: Atrial Fibrillation, CAD, HTN, Hypercholesterolemia, Hyperlipidemia, Hypothyroidism - Surgical History Surgical History: Cholecystectomy, Tonsillectomy - Family History Family History: States: Unknown Family Hx - Social History Current smoker - smoking cessation education provided: No Alcohol: None Drugs: Denies - Home Medications Home Medications: Ambulatory Orders Medication Instructions Recorded RX: Levothyroxine [Synthroid] 75 mcg PO DAILY 06/10/17 RX: Metformin HCl [Glucophage] 1,000 mg PO BID 06/10/17 RX: Alprazolam [Xanax] 0.25 mg PO Q12 PRN 02/11/18 RX: Atorvastatin [Lipitor] 20 mg PO HS 02/11/18 RX: Diltiazem HCl [Diltiazem 24Hr 180 mg PO DAILY 02/11/18 Cd] RX: Lisinopril [Zestril] 2.5 mg PO DAILY 02/11/18 RX: Rivaroxaban [Xarelto] 20 mg PO QPM 02/11/18 RX: Amiodarone [Cordarone] 200 mg PO BID #60 tab 02/14/18 RX: Ranitidine HCl 150 mg PO DAILY #30 tablet 02/22/18 - Allergies Allergies/Adverse Reactions: Allergies Allergy/AdvReac Type Severity Reaction Status Date / Time Sulfa (Sulfonamide Allergy RASH Verified 02/26/18 15:49 Antibiotics) Review of Systems ROS Statement: Except As Marked, All Systems Reviewed And Found Negative Constitutional: Positive for: Weight loss Gastrointestinal: Positive for: Nausea, Vomiting, Diarrhea, Other (decreased appetite). Negative for: Abdominal Pain Genitourinary Female: Negative for: Dysuria, Frequency, Hematuria Neurological: Negative for: Headache Physical Exam - Reviewed Nursing Documentation Reviewed: Yes Vital Signs Reviewed: Yes - Physical Exam Appears: Positive for: Non-toxic, No Acute Distress Head Exam: Positive for: ATRAUMATIC, NORMOCEPHALIC Skin: Positive for: Warm, Dry Eye Exam: Positive for: EOMI, PERRL ENT: Positive for: Other (dry mucus membranes) Neck: Positive for: Painless ROM, Supple Cardiovascular/Chest: Positive for: Regular Rate, Rhythm. Negative for: Murmur Respiratory: Positive for: Normal Breath Sounds. Negative for: Respiratory Distress Gastrointestinal/Abdominal: Positive for: Soft. Negative for: Tenderness, Mass, Distended, Guarding, Rebound Back: Positive for: Normal Inspection. Negative for: Decreased ROM Extremity: Positive for: Normal ROM. Negative for: Deformity Lymphatic: Negative for: Adenopathy Neurologic/Psych: Positive for: Alert, Oriented, Mood/Affect (anxious) - Laboratory Results Result Diagrams: 02/26/18 17:04 02/26/18 17:04 - ECG ECG: Positive for: Interpreted By Me ECG Rhythm: Positive for: Normal QRS, Normal ST Segment, Sinus Rhythm, 1st Degree Heart Block O2 Sat by Pulse Oximetry: 98 (RA) Pulse Ox Interpretation: Normal Medical Decision Making Medical Decision Making: Impression: Nausea, vomiting Differential: Including but not limited to gastritis, anxiety, reflux, medication reaction, electrolyte abnormality, pancreatitis Plan: -- Labs -- EKG -- Urinalysis -- Zofran 8mg IV -- Protonix 40mg IV 2100 Pt has continue nausea in ER and unable to eat. FAY Lam PMD. Pt placed in observation under his service. Requests CT abd/pelv. Name: CHARITY SHAH Exam Date: Feb 26, 2018 8:52:35 PM EST Modality Type: CT Description: CT - ABDOMEN AND PELVIS WITH CORONAL AND SAGITTAL MPRS Gender: F Laterality: Not applicable : 31 Referring Physician: Mattie Adams EXAM: CT Abdomen and Pelvis with IV contrast CLINICAL HISTORY: INTRACTABLE VOMITING NAUSEA WEAKNESS TECHNIQUE: Axial computed tomography images of the abdomen and pelvis with intravenous contrast. CONTRAST: With intravenous contrast. COMPARISON: None provided. FINDINGS: LUNG BASES: The lung bases appear clear. No pleural effusions are seen. LIVER: Unremarkable. GALLBLADDER AND BILE DUCTS: The gallbladder appears within normal limits. No radioopaque gallstones are seen. No biliary ductal dilatation is evident. PANCREAS: Unremarkable. SPLEEN: Unremarkable. ADRENAL GLANDS: Unremarkable. KIDNEYS, URETERS, AND BLADDER: The kidneys appear within normal limits. There is no hydronephrosis or hydroureter. No urinary calculi are seen. STOMACH AND BOWEL: A small hiatal hernia is identified; which demonstrates some mucosal wall thickening which could indicate a component of GERD. Unremarkable appearance of the stomach. There is diverticulosis coli of the colon noted. There is apparent subtle pericolonic haziness about the course of the descending colon which could indicate acute diverticulitis. There is no definite evidence of pericolonic abscess formation or microperforation. No evidence of bowel obstruction. No evidence suggesting enteritis. APPENDIX: No evidence of acute appendicitis on CT examination. PERITONEUM: No free fluid. No free air. LYMPH NODES: No lymphadenopathy is evident. REPRODUCTIVE: A 3.5 x 2.7 cm ovoid shaped hypodense mass is seen in the right pelvis possibly consistent with an ovarian or mesenteric cyst. Consideration could be given to correlation with pelvic ultrasound evaluation. The uterus appeared normal in size and position. The left ovary appeared unremarkable. Incidental note is made of calcification of the fallopian tubes bilaterally; a common finding in the elderly female patient. VASCULATURE: No evidence of abdominal aortic aneurysm. There is moderate-extensive atherosclerotic vascular plaquing present. BONES: No aggressive appearing osseous lesion. No acute osseous pathology evident. Vacuum disc phenomenon is present at L4-5 and L5-S1 consistent with degenerative disc disease. Marginal osteophytic spurring is noted throughout the lumbar vertebrae. IMPRESSION: 1. Diverticulosis coli with suggestion of mild acute diverticulitis along the course of the descending colon. No pericolonic abscess formation or microperforation detected. 2. Questionable 3.5 x 2.7 cm right ovarian or mesenteric cyst in the right pelvis. Consideration could be given to correlation with pelvic ultrasound evaluation. 3. A small hiatal hernia is present which appears to demonstrate some mucosal edematous changes suggestive of GERD. 4. Moderate atherosclerotic vascular plaquing is present. 5. Evidence of degenerative disc disease at L4-5 and L5-S1. Electronically signed on Feb 26, 2018 10:08:09 PM EST by: Virgil Louis M.D., MBA Certified By [employer] & [employer] Fellowship Trained MRI and CT Specialist Scribe Attestation: Documented by Rama Gates acting as a scribe for Mattie Adams MD. Provider Attestation: All medical record entries made by the Scribe were at my direction and per sonally dictated by me. I have reviewed the chart and agree that the record accurately reflects my personal performance of the history, physical exam, medical decision making, and the department course for this patient. I have also personally directed, reviewed, and agree with the discharge instructions and disposition. Disposition - Clinical Impression Clinical Impression: Intractable vomiting Counseled Patient/Family Regarding: Studies Performed, Diagnosis - Disposition Disposition Time: 22:00 Condition: FAIR - Pt Status Changed To: Hospital Disposition Of: Observation - POA Present On Arrival: None
[2018-02-26 17:29] LABS: ALB/GLOB RATIO 1.4 (1.0-2.1); ALBUMIN 4.4 g/dL (3.5-5.0); ALT/SGPT 21 U/L (9-52); AST/SGOT 20 U/L (14-36); BLOOD UREA NITROGEN 23 mg/dl (7-17); CALCIUM 9.6 mg/dL (8.4-10.2); GFR NON-AFRICAN AMERICAN 59; LIPASE 110 U/L (23-300)
[2018-02-26 17:37] LABS: B-TYPE NATRIURETIC PEPTIDE 187 pg/ml (0-900)
[2018-02-26] MEDS ORDERED: Sodium Chloride 0.9% 500 ML IV STA (19:44)
[2018-02-26] MEDS ORDERED: Iohexol 300 100 ML IJ ONE (19:49)
[2018-02-26] MEDS ORDERED: Sodium Chloride 0.9% 50 ML IV ONE (19:49)
[2018-02-26] MEDS: Sodium Chloride 0.9% 1,000 ML IV SCH (20:52)
[2018-02-26 21:14] LABS: SQUAMOUS EPITHIAL 3 /hpf (0-5); URINE BACTERIA RARE (<OCC); URINE BILIRUBIN NEGATIVE (NEGATIVE); URINE BLOOD NEGATIVE (NEGATIVE); URINE CLARITY CLOUDY (Clear); URINE COLOR YELLOW (YELLOW); URINE GLUCOSE (UA) NEG (NEGATIVE); URINE LEUKOCYTE ESTERASE MOD Leu/uL (Negative); URINE PROTEIN 30 mg/dL (NEGATIVE)
[2018-02-27] MEDS: Levothyroxine 75 MCG TAB PO SCH (05:48)
[2018-02-27] MEDS: Sodium Chloride 0.9% 1,000 ML IV SCH ×2 (05:48→16:32)
[2018-02-27] MEDS: diltiaZEM 180 mg/24 Hours CD Cap PO SCH (08:08)
[2018-02-27] MEDS ORDERED: Enoxaparin 40 mg Syringe SC SCH (09:00)
--- NOTE | 2018-02-27 10:46 | CT ---
Date of service: 02/26/2018 PROCEDURE: CT Abdomen and Pelvis with contrast HISTORY: intractable vomiting COMPARISON: None. TECHNIQUE: Contrast dose: 90 mL Omnipaque 300 Radiation dose: Total exam DLP = 322.17 mGy-cm. This CT exam was performed using one or more of the following dose reduction techniques: Automated exposure control, adjustment of the mA and/or kV according to patient size, and/or use of iterative reconstruction technique. FINDINGS: LOWER THORAX: Unremarkable. LIVER: Unremarkable. No gross lesion or ductal dilatation. GALLBLADDER AND BILE DUCTS: Unremarkable. PANCREAS: Unremarkable. No gross lesion or ductal dilatation. SPLEEN: Unremarkable. ADRENALS: Unremarkable. No mass. KIDNEYS AND URETERS: Unremarkable. No hydronephrosis. No solid mass. VASCULATURE: Unremarkable. No aortic aneurysm. Aortic atherosclerotic calcification and mural plaque present. BOWEL: Small hiatal hernia. Colonic diverticulosis. No obstruction. No gross mural thickening. APPENDIX: Normal appendix. PERITONEUM: Unremarkable. No free fluid. No free air. LYMPH NODES: Unremarkable. No enlarged lymph nodes. BLADDER: Unremarkable. REPRODUCTIVE: Right ovarian 3.7 cm cyst. BONES: Multilevel spinal degenerative changes. Grade 1 anterolisthesis of L4 on L5. No acute fracture. OTHER FINDINGS: None. IMPRESSION: No acute abdominal pelvic pathology. Findings as above.
--- NOTE | 2018-02-27 12:22 | CARD ---
APPROVED REPORT Date of service: 02/26/2018 EKG Measurement Heart [id number] <Conclusion> Sinus rhythm with 1st degree AV block Otherwise normal ECG
[2018-02-27] MEDS ORDERED: Magnesium Sulfate 1 gm in D5W 1 GM/100 ML BAG IVPB ONE (12:25)
--- NOTE | 2018-02-27 21:37 | CP.PCM.HP ---
Past Patient History - Past Medical History & Family History Past Medical History?: Yes - Past Social History Smoking Status: Never Smoked - CARDIAC Hx Cardiac Disorders: Yes Hx Atrial Fibrillation: Yes Hx Hypercholesterolemia: Yes Hx Hypertension: Yes - PULMONARY Hx Respiratory Disorders: No - NEUROLOGICAL Hx Neurological Disorder: No - HEENT Hx HEENT Problems: Yes Hx Cataracts: Yes - RENAL Hx Chronic Kidney Disease: No - ENDOCRINE/METABOLIC Hx Endocrine Disorders: Yes Hx Hypothyroidism: Yes - HEMATOLOGICAL/ONCOLOGICAL Hx Blood Disorders: No - INTEGUMENTARY Hx Dermatological Problems: No - MUSCULOSKELETAL/RHEUMATOLOGICAL Hx Musculoskeletal Disorders: No Hx Falls: No - GASTROINTESTINAL Hx Gastrointestinal Disorders: No - GENITOURINARY/GYNECOLOGICAL Hx Genitourinary Disorders: No - PSYCHIATRIC Hx Psychophysiologic Disorder: No - SURGICAL HISTORY Hx Surgeries: Yes Hx Tonsillectomy: Yes Other/Comment: Patient denies having cholecystectomy - ANESTHESIA Hx Anesthesia: Yes Hx Anesthesia Reactions: No Hx Malignant Hyperthermia: No Meds Allergies/Adverse Reactions: Allergies Allergy/AdvReac Type Severity Reaction Status Date / Time Sulfa (Sulfonamide Allergy RASH Verified 02/26/18 15:49 Antibiotics) Results - Vital Signs Recent Vital Signs: Last Vital Signs Temp 97.9 F 02/27/18 16:12 Pulse 80 02/27/18 16:29 Resp 18 02/27/18 16:12 BP 118/62 02/27/18 16:29 Pulse Ox 96 02/27/18 16:12 - Labs Result Diagrams: 02/26/18 17:04 02/26/18 17:04 Labs: Laboratory Results - last 24 hr 02/26/18 02/26/18 02/26/18 00:01 00:01 23:06 POC Glucose (mg/dL) 88 Troponin I < 0.0120 Alpha Fetoprotein 3.5 Carcinoembryonic Ag 2.2 CA 19-9 Antigen 26.6
--- NOTE | 2018-02-27 21:37 | CP.PCM.PN ---
Subjective - Date & Time of Evaluation Date of Evaluation: 02/27/18 Objective - Vital Signs/Intake and Output Vital Signs (last 24 hours): Temp Pulse Resp BP Pulse Ox 97.9 F 80 18 118/62 96 02/27/18 16:12 02/27/18 16:29 02/27/18 16:12 02/27/18 16:29 02/27/18 16:12 - Medications Medications: Current Medications Alprazolam (Xanax) 0.25 mg PO Q12 PRN PRN Reason: Anxiety Stop: 03/05/18 20:37 Amiodarone HCl (Cordarone) 200 mg PO BID [facility] Last Admin: 02/27/18 16:29 Dose: 200 mg Atorvastatin Calcium (Lipitor) 20 mg PO HS [facility] Last Admin: 02/27/18 21:12 Dose: 20 mg Diltiazem HCl (Cardizem Cd) 180 mg PO DAILY [facility] Last Admin: 02/27/18 08:08 Dose: 180 mg Famotidine (Pepcid) 20 mg PO DAILY [facility] Last Admin: 02/27/18 08:09 Dose: 20 mg Sodium Chloride (Sodium Chloride 0.9%) 1,000 mls @ 100 mls/hr IV .Q10H [facility] Stop: 02/28/18 20:39 Last Admin: 02/27/18 16:32 Dose: 100 mls/hr Levothyroxine Sodium (Synthroid) 75 mcg PO DAILY@0630 [facility] Last Admin: 02/27/18 05:48 Dose: 75 mcg Lisinopril (Zestril) 2.5 mg PO DAILY [facility] Last Admin: 02/27/18 08:13 Dose: 2.5 mg Metformin HCl (Glucophage) 1,000 mg PO BID [facility] Last Admin: 02/27/18 16:29 Dose: 1,000 mg Ondansetron HCl (Zofran Inj) 4 mg IVP Q6 PRN PRN Reason: Nausea/Vomiting Last Admin: 02/27/18 16:34 Dose: 4 mg Rivaroxaban (Xarelto) 20 mg PO QPM [facility]; Protocol Last Admin: 02/27/18 19:15 Dose: 20 mg - Labs Labs: 02/26/18 17:04 02/26/18 17:04
[2018-02-28] MEDS: Sodium Chloride 0.9% 1,000 ML IV SCH ×2 (02:19→13:25)
[2018-02-28] MEDS: Levothyroxine 75 MCG TAB PO SCH (05:50)
[2018-02-28 07:23] LABS: ALB/GLOB RATIO 1.2 (1.0-2.1); ALBUMIN 3.3 g/dL (3.5-5.0); ALT/SGPT 16 U/L (9-52); AST/SGOT 17 U/L (14-36); BLOOD UREA NITROGEN 13 mg/dl (7-17); CALCIUM 8.7 mg/dL (8.4-10.2); GFR NON-AFRICAN AMERICAN > 60
[2018-02-28] MEDS: diltiaZEM 180 mg/24 Hours CD Cap PO SCH (09:24)
[2018-02-28] MEDS ORDERED: Magnesium Oxide 400 mg Tab UD PO SCH (12:15)
[2018-02-28 16:36] VITALS: PULSE 64; RESP 18; TEMP 98.3; O2SAT 97
[2018-02-28 17:23] VITALS: BP 135/65
--- NOTE | 2018-02-28 23:00 | CP.PCM.DIS ---
Provider - Provider Date of Admission: 02/26/18 20:03 Attending physician: Ervin Lam MD Time Spent in preparation of Discharge (in minutes): 25 Diagnosis - Discharge Diagnosis (1) Dehydration Status: Acute Priority: High (2) Generalized weakness Status: Acute Priority: High (3) Afib Status: Acute Priority: High (4) DM (diabetes mellitus) Status: Acute Priority: Low (5) HTN (hypertension) Status: Acute Priority: Low Hospital Course - Lab Results Lab Results: Most Recent Lab Values WBC 7.0 K/uL (4.8-10.8) 02/26/18 17:04 RBC 4.45 Mil/uL (3.80-5.20) 02/26/18 17:04 Hgb 11.9 g/dL (12.0-16.0) L 02/26/18 17:04 Hct 36.6 % (34.0-47.0) 02/26/18 17:04 MCV 82.3 fl (81.0-99.0) 02/26/18 17:04 MCH 26.8 pg (27.0-31.0) L 02/26/18 17:04 MCHC 32.5 g/dL (33.0-37.0) L 02/26/18 17:04 RDW 16.2 % (11.5-14.5) H 02/26/18 17:04 Plt Count 243 K/uL (130-400) 02/26/18 17:04 MPV 7.7 fl (7.2-11.7) 02/26/18 17:04 Neut % (Auto) 75.4 % (50.0-75.0) H 02/26/18 17:04 Lymph % (Auto) 17.1 % (20.0-40.0) L 02/26/18 17:04 [place] % (Auto) 6.4 % (0.0-10.0) 02/26/18 17:04 Eos % (Auto) 0.2 % (0.0-4.0) 02/26/18 17:04 Baso % (Auto) 0.9 % (0.0-2.0) 02/26/18 17:04 Neut # (Auto) 5.3 K/uL (1.8-7.0) 02/26/18 17:04 Lymph # (Auto) 1.2 K/uL (1.0-4.3) 02/26/18 17:04 [place] # (Auto) 0.4 K/uL (0.0-0.8) 02/26/18 17:04 Eos # (Auto) 0.0 K/uL (0.0-0.7) 02/26/18 17:04 Baso # (Auto) 0.1 K/uL (0.0-0.2) 02/26/18 17:04 Sodium 139 mmol/l (132-148) 02/28/18 06:20 Potassium 4.0 MMOL/L (3.6-5.0) 02/28/18 06:20 Chloride 108 mmol/L (98-107) H 02/28/18 06:20 Carbon Dioxide 23 mmol/L (22-30) 02/28/18 06:20 Anion Gap 12 (10-20) 02/28/18 06:20 BUN 13 mg/dl (7-17) 02/28/18 06:20 Creatinine 0.7 mg/dl (0.7-1.2) 02/28/18 06:20 Est GFR ( Amer) > 60 02/28/18 06:20 Est GFR (Non-Af Amer) > 60 02/28/18 06:20 POC Glucose (mg/dL) 88 mg/dL (65-110) 02/26/18 23:06 Random Glucose 86 mg/dL (65-105) 02/28/18 06:20 Calcium 8.7 mg/dL (8.4-10.2) 02/28/18 06:20 Phosphorus 4.3 mg/dl (2.5-4.5) 02/26/18 17:04 Magnesium 1.5 MG/DL (1.6-2.3) L 02/28/18 06:20 Total Bilirubin 0.3 mg/dl (0.2-1.3) 02/28/18 06:20 AST 17 U/L (14-36) 02/28/18 06:20 ALT 16 U/L (9-52) 02/28/18 06:20 Alkaline Phosphatase 49 U/L (38-126) 02/28/18 06:20 Troponin I < 0.0120 ng/mL (0.00-0.120) 02/26/18 17:04 NT-Pro-B Natriuret Pep 187 pg/ml (0-900) 02/26/18 17:04 Total Protein 6.0 G/DL (6.3-8.2) L 02/28/18 06:20 Albumin 3.3 g/dL (3.5-5.0) L D 02/28/18 06:20 Globulin 2.7 gm/dL (2.2-3.9) 02/28/18 06:20 Albumin/Globulin Ratio 1.2 (1.0-2.1) 02/28/18 06:20 Lipase 110 U/L (23-300) 02/26/18 17:04 Alpha Fetoprotein 3.5 IU/mL (0.0-7.22) 02/26/18 00:01 Carcinoembryonic Ag 2.2 ng/mL (0-3.0) 02/26/18 00:01 CA 19-9 Antigen 26.6 U/mL (0-37) 02/26/18 00:01 TSH 3rd Generation 1.57 mIU/ML (0.46-4.68) 02/26/18 17:04 Urine Color Yellow (YELLOW) 02/26/18 20:45 Urine Clarity Cloudy (Clear) 02/26/18 20:45 Urine pH 5.0 (5.0-8.0) 02/26/18 20:45 Ur Specific [place] 1.023 (1.003-1.030) 02/26/18 20:45 Urine Protein 30 mg/dL (NEGATIVE) 02/26/18 20:45 Urine Glucose (UA) Neg mg/dL (NEGATIVE) 02/26/18 20:45 Urine Ketones Trace mg/dL (NEGATIVE) 02/26/18 20:45 Urine Blood Negative (NEGATIVE) 02/26/18 20:45 Urine Nitrate Negative (NEGATIVE) 02/26/18 20:45 Urine Bilirubin Negative (NEGATIVE) 02/26/18 20:45 Urine Urobilinogen 2.0 mg/dL (0.2-1.0) H 02/26/18 20:45 Ur Leukocyte Esterase Mod Nate/uL (Negative) 02/26/18 20:45 Urine RBC (Auto) 3 /hpf (0-3) 02/26/18 20:45 Urine Microscopic WBC 19 /hpf (0-5) H 02/26/18 20:45 Ur Squamous Epith Cells 3 /hpf (0-5) 02/26/18 20:45 Urine Bacteria Rare (<OCC) 02/26/18 20:45 Hyaline Casts 6-10 /hpf (0-2) H 02/26/18 20:45 Discharge Exam - Head Exam Head Exam: ATRAUMATIC, NORMOCEPHALIC Discharge Plan - Follow Up Plan Condition: FAIR Disposition: HOME/ ROUTINE Instructions: Nausea and Vomiting, Adult (DC) Additional Instructions: follow up with primary MD 1 week Referrals: Ervin aLm MD [Primary Care Provider] -
== END 2018-02-28 21:07 | disposition home or self-care (01) ==
LOC: H.ER 15:42 → H.ERHOLD 20:03 → H.MEDSURG1 02-27 00:10
PROVIDERS: ADMIT Internal Medicine; ATTEND Internal Medicine
DX: E86.0 Dehydration (principal); R53.1 Weakness; I48.91 Unspecified atrial fibrillation; I25.10 Atherosclerotic heart disease of native coronary artery without angina pectoris; E78.5 Hyperlipidemia, unspecified; K44.9 Diaphragmatic hernia without obstruction or gangrene; I10 Essential (primary) hypertension; E03.9 Hypothyroidism, unspecified; E78.00 Pure hypercholesterolemia, unspecified; M51.36 Other intervertebral disc degeneration, lumbar region
CPT/HCPCS: 36415; 74177; 80053; 81003; 82105; 82378; 82948; 83690; 83735; 83880; 84100; 84443; 84484; 85025; 86301; 93005; 96374; 99284; C9113; G0378; J2405; J3475; J7030; Q9967

== ENCOUNTER 2018-03-14 10:34 | Emergency (ER) | payer OTHER ==
[2018-03-14 10:41] VITALS: BMI 22.1
--- NOTE | 2018-03-14 11:36 | ED PDOC ---
HPI: Trauma/Fall - HPI Time Seen by Provider: 03/14/18 11:05 Chief Complaint (Nursing): Back Pain Chief Complaint (Provider): Left arm pain, back pain History Per: Patient History/Exam Limitations: no limitations Onset/Duration Of Symptoms: Days (1) Injury Occurred (Timing): Days Ago: (1) Location Of Injury: Right: Back, Left: Arm, Back Associated Symptoms: denies: LOC Additional History Per: Patient Additional Complaint(s): 88yo female, with history of diabetes, hypercholesterolemia, hypertension, a-fib (on xarelto), comes to ER reporting left arm pain and lower back pain s/p fall yesterday. Patient reports while turning, she tripped on her foot and fell; she was able to get up by herself and ambulate afterwards. Patient denies any head injury, loss of conscious, vomiting, numbness or tingling. No additional complaints. PMD: Dr. Lam Heat Reader: Dr. Hough Past Medical History Reviewed: Historical Data, Nursing Documentation, Vital Signs Vital Signs: Last Vital Signs Temp 97.6 F 03/14/18 10:41 Pulse 71 03/14/18 10:41 Resp 20 03/14/18 10:41 BP 159/75 H 03/14/18 10:41 Pulse Ox 98 03/14/18 10:41 - Medical History PMH: Atrial Fibrillation, CAD, HTN, Hypercholesterolemia, Hyperlipidemia, Hypo thyroidism Denies: Chronic Kidney Disease - Surgical History Surgical History: Cholecystectomy, Tonsillectomy - Family History Family History: States: No Known Family Hx - Home Medications Home Medications: Ambulatory Orders Medication Instructions Recorded RX: Levothyroxine [Synthroid] 75 mcg PO DAILY 06/10/17 RX: Metformin HCl [Glucophage] 500 mg PO BID 06/10/17 RX: Alprazolam [Xanax] 0.25 mg PO Q12 PRN 02/11/18 RX: Atorvastatin [Lipitor] 20 mg PO HS 02/11/18 RX: Diltiazem HCl [Diltiazem 24Hr 180 mg PO DAILY 02/11/18 Cd] RX: Lisinopril [Zestril] 2.5 mg PO DAILY 02/11/18 RX: Rivaroxaban [Xarelto] 20 mg PO QPM 02/11/18 RX: Amiodarone [Cordarone] 100 mg PO BID 03/14/18 - Allergies Allergies/Adverse Reactions: Allergies Allergy/AdvReac Type Severity Reaction Status Date / Time Sulfa (Sulfonamide Allergy RASH Verified 03/14/18 11:05 Antibiotics) Review of Systems ROS Statement: Except As Marked, All Systems Reviewed And Found Negative Gastrointestinal: Negative for: Vomiting Musculoskeletal: Positive for: Arm Pain (left upper arm), Back Pain (lower) Neurological: Negative for: Weakness, Numbness, Other (loss of consciousness) Physical Exam - Reviewed Nursing Documentation Reviewed: Yes Vital Signs Reviewed: Yes - Physical Exam Appears: Positive for: Non-toxic, No Acute Distress Head Exam: Positive for: ATRAUMATIC, NORMAL INSPECTION, NORMOCEPHALIC Skin: Positive for: Normal Color, Warm Eye Exam: Positive for: EOMI, PERRL Neck: Positive for: Normal, Supple Cardiovascular/Chest: Positive for: Regular Rate, Rhythm, Chest Non Tender Respiratory: Positive for: Normal Breath Sounds Pulses-Radial (L): 2+ Pulses-Radial (R): 2+ Gastrointestinal/Abdominal: Positive for: Normal Exam, Soft Back: Positive for: Other (bilateral paralumbar tenderness). Negative for: L CVA Tenderness, R CVA Tenderness, Vertebral Tenderness Extremity: Positive for: Normal ROM (FROM at left shoulder and elbow), Tenderness (mild tenderness to left lateral upper arm; mild hematoma noted to same site), Capillary Refill (< 2 seconds), Other (normal distal sensations). Negative for: Deformity Neurologic/Psych: Positive for: Alert, Oriented (x 3), Gait (steady (ambulated into ER)). Negative for: Motor/Sensory Deficits - Laboratory Results Result Diagrams: 03/14/18 11:48 03/14/18 11:48 - ECG ECG: Positive for: Interpreted By Me, Viewed By Me ECG Rhythm: Positive for: Sinus Rhythm, 1st Degree Heart Block Rate: 66 O2 Sat by Pulse Oximetry: 98 (RA) Pulse Ox Interpretation: Normal Medical Decision Making Medical Decision Makinyo female, comes for evaluation s/p fall Plan: -- Labs -- EKG -- CT Head w/o contrast -- XR left shoulder -- XR left humerus -- XR lumbar spine -- Percocet 1 tab PO 1225 Patient declined percocet, given Tylenol 650mg PO 1344 CT Head FINDINGS: HEMORRHAGE: No intracranial hemorrhage. BRAIN: No mass effect or edema. No atrophy or chronic microvascular ischemic changes. VENTRICLES: Unremarkable. No hydrocephalus. CALVARIUM: Unremarkable. PARANASAL SINUSES: Unremarkable as visualized. No significant inflammatory changes. MASTOID AIR CELLS: Unremarkable as visualized. No inflammatory changes. OTHER FINDINGS: None. IMPRESSION: No acute intracranial abnormalities. No significant findings to account for the clinical presentation. 1417 XR Lumbar Spine FINDINGS: BONES: Grade 1 anterolisthesis L4-5. Diffuse osteopenia. Loss of height L1 vertebral body likely osteopenic compression fracture (old) DISC SPACES: Degenerative changes including vacuum disc phenomenon L4-5. OTHER FINDINGS: Calcified nonaneurysmal abdominal aorta. IMPRESSION: No acute findings related to/ accounting for the clinical presentation. Additional benign and/or incidental findings described above. XR Left Shoulder FINDINGS: BONES: Normal. No fracture. JOINTS: Normal. Glenohumeral and acromioclavicular joints preserved. No osteoarthritis. SOFT TISSUES: Normal. OTHER FINDINGS: None. IMPRESSION: No acute findings related to/ accounting for the clinical presentation. XR Left humerus FINDINGS: BONES: Normal. No fracture or focal lesion. SOFT TISSUES: Normal. OTHER FINDINGS: None. IMPRESSION: No acute findings related to/ accounting for the clinical presentation. 1622 Labs reviewed, minimal anemia noted. Discussed with patient and family regarding imaging and labs findings. Prior to discharge, patient reports hip pain. XR Bilateral hips ordered. 17:28 Hip X-ray FINDINGS: BONES: Pelvis: Unremarkable. Right hip:Unremarkable. Left hip:Unremarkable. JOINTS: Right hip: Mild degenerative change. Left hip: Symmetrical degenerative change. Sacroiliac Joints: Unremarkable. Pubic symphysis: Unremarkable. SOFT TISSUES: Normal. OTHER FINDINGS: None. IMPRESSION: No acute findings related to/ accounting for the clinical presentation. 17:40 Dr. Lam called. Patient is stable for discharge with daughter. Spoke with Dr. Lam who agrees with plan. 18:01 Dr. Lam at bedside. Patient stable for discharge. imaging, no acute findings. discussed plan with pt and daughter who are both in agreement w plan --------- Scribe Attestation: Documented by Rama Gates acting as a scribe for Aditi Cosby MD. Provider Attestation: All medical record entries made by the Scribe were at my direction and personally dictated by me. I have reviewed the chart and agree that the record accurately reflects my personal performance of the history, physical exam, medical decision making, and the department course for this patient. I have also personally directed, reviewed, and agree with the discharge instructions and disposition. Disposition - Clinical Impression Clinical Impression: Fall from slip, trip, or stumble - Patient ED Disposition Is Patient to be Admitted: No Counseled Patient/Family Regarding: Studies Performed, Diagnosis, Need For Followup - Disposition Referrals: Ervin Lam MD [Staff Provider] - Disposition: Routine/Home Disposition Time: 18:00 Condition: IMPROVED Additional Instructions: follow up with Dr Lam in 1-2 days for reevaluation take tylenol for pain as needed return to the ED with any worsening or concerning symptoms Instructions: Preventing Falls in the Older Adult Forms: [employer] ([employer])
[2018-03-14] MEDS ORDERED: Oxycodone/Acetaminophen 5/325 mg Tab PO ONE (11:38)
[2018-03-14 11:59] LABS: BASO % 0.6 % (0.0-2.0); EOS # 0.1 K/uL (0.0-0.7); EOS % 1.1 % (0.0-4.0); HEMOGLOBIN 11.5 g/dL (12.0-16.0); LYMPH # 1.1 K/uL (1.0-4.3); LYMPH % 19.1 % (20.0-40.0); MEAN CELL VOLUME 82.5 fl (81.0-99.0); MEAN CORPUSCULAR HEMOGLOBIN 26.6 pg (27.0-31.0); MEAN CORPUSCULAR HGB CONC 32.3 g/dL (33.0-37.0); MEAN PLATELET VOLUME 7.4 fl (7.2-11.7); MONO # 0.6 K/uL (0.0-0.8); MONO % 10.6 % (0.0-10.0); NEUT # 3.8 K/uL (1.8-7.0); NEUT % 68.6 % (50.0-75.0); RBC 4.31 Mil/uL (3.80-5.20); RED CELL DISTRIBUTION WIDTH 16.8 % (11.5-14.5); WHITE BLOOD COUNT 5.6 K/uL (4.8-10.8)
[2018-03-14 12:17] LABS: ALB/GLOB RATIO 1.4 (1.0-2.1); ALBUMIN 4.1 g/dL (3.5-5.0); ALT/SGPT 23 U/L (9-52); AST/SGOT 26 U/L (14-36); BLOOD UREA NITROGEN 16 mg/dl (7-17); CALCIUM 9.4 mg/dL (8.4-10.2); GFR NON-AFRICAN AMERICAN > 60
[2018-03-14 12:53] LABS: INR 1.6; PROTHROMBIN TIME 18.2 Seconds (9.8-13.1)
[2018-03-14 12:56] LABS: PARTIAL THROMBOPLASTIN TIME 39.4 Seconds (25.6-37.1)
--- NOTE | 2018-03-14 13:48 | CT ---
Date of service: 03/14/2018 PROCEDURE: CT HEAD WITHOUT CONTRAST. HISTORY: Fall, posttraumatic back pain COMPARISON: None available. TECHNIQUE: Axial computed tomography images were obtained through the head/brain without intravenous contrast. Supplemental Coronal and Sagittal projections created and reviewed. Radiation dose: Total exam DLP = 79.07 mGy-cm. This CT exam was performed using one or more of the following dose reduction techniques: Automated exposure control, adjustment of the mA and/or kV according to patient size, and/or use of iterative reconstruction technique. FINDINGS: HEMORRHAGE: No intracranial hemorrhage. BRAIN: No mass effect or edema. No atrophy or chronic microvascular ischemic changes. VENTRICLES: Unremarkable. No hydrocephalus. CALVARIUM: Unremarkable. PARANASAL SINUSES: Unremarkable as visualized. No significant inflammatory changes. MASTOID AIR CELLS: Unremarkable as visualized. No inflammatory changes. OTHER FINDINGS: None. IMPRESSION: No acute intracranial abnormalities. No significant findings to account for the clinical presentation.
--- NOTE | 2018-03-14 14:14 | RAD ---
Date of service: 03/14/2018 PROCEDURE: Radiographs of the Left Shoulder HISTORY: fall COMPARISON: No prior. FINDINGS: BONES: Normal. No fracture. JOINTS: Normal. Glenohumeral and acromioclavicular joints preserved. No osteoarthritis. SOFT TISSUES: Normal. OTHER FINDINGS: None. IMPRESSION: No acute findings related to/ accounting for the clinical presentation.
--- NOTE | 2018-03-14 14:15 | RAD ---
Date of service: 03/14/2018 PROCEDURE: Radiographs of the Lumbar Spine. HISTORY: lower back pain COMPARISON: No prior. FINDINGS: BONES: Grade 1 anterolisthesis L4-5. Diffuse osteopenia. Loss of height L1 vertebral body likely osteopenic compression fracture (old) DISC SPACES: Degenerative changes including vacuum disc phenomenon L4-5. OTHER FINDINGS: Calcified nonaneurysmal abdominal aorta. IMPRESSION: No acute findings related to/ accounting for the clinical presentation. Additional benign and/or incidental findings described above.
--- NOTE | 2018-03-14 14:16 | RAD ---
PROCEDURE: Radiographs of the left humerus. HISTORY: fall COMPARISON: None. FINDINGS: BONES: Normal. No fracture or focal lesion. SOFT TISSUES: Normal. OTHER FINDINGS: None. IMPRESSION: No acute findings related to/ accounting for the clinical presentation.
--- NOTE | 2018-03-14 17:32 | RAD ---
PROCEDURE: Radiographs of the pelvis and bilateral hips HISTORY: Fall. COMPARISON: None. FINDINGS: BONES: Pelvis: Unremarkable. Right hip:Unremarkable. Left hip:Unremarkable. JOINTS: Right hip: Mild degenerative change. Left hip: Symmetrical degenerative change. Sacroiliac Joints: Unremarkable. Pubic symphysis: Unremarkable. SOFT TISSUES: Normal. OTHER FINDINGS: None. IMPRESSION: No acute findings related to/ accounting for the clinical presentation.
[2018-03-14 18:18] VITALS: BP 139/80; RESP 18; TEMP 97.8
--- NOTE | 2018-03-14 19:09 | CARD ---
APPROVED REPORT Date of service: 03/14/2018 EKG Measurement Heart [id number] <Conclusion> Sinus rhythm with 1st degree AV block Otherwise normal ECG
[2018-03-17 22:25] VITALS: PULSE 66; O2SAT 98
== END 2018-03-14 18:17 | disposition home or self-care (01) ==
LOC: H.ER 10:34
DX: M54.5 Low back pain (principal); I10 Essential (primary) hypertension; E03.9 Hypothyroidism, unspecified; I48.91 Unspecified atrial fibrillation; W01.0XXA Fall on same level from slipping, tripping and stumbling without subsequent striking against object, initial encounter